=== PATIENT | male | born 1935 | race African-American/Black ===

== ENCOUNTER 2018-08-20 09:29 | Inpatient (IN) ==
[2018-08-20 10:32] LABS: Apearance,Urine CLEAR (Clear); Bilirubin,Urine Negative (Negative); Blood, Urine Negative (Negative); Calcium Oxalate Crystals,Urine Occasional /HPF (Few); Glucose,Urine (UA) Negative (Negative); Ketones,Urine Negative (Negative); Mucus,Urine Occasional /LPF (Occasional); Nitrite,Urine Negative (Negative); Protein,Urine Negative; RBC,Urine 1 /HPF (0-4); Squamous Epithelial Cell,Urine Occasional /HPF (0-10); Urine Color Yellow (Yellow); Urine Specific Gravity 1.015 (1.001-1.035); Urine Urobilinogen < 2.0 EU/DL (0.2-1.0); WBC,Urine 6 /HPF (0-6)
[2018-08-20 11:42] LABS: Basophils % 0.5 % (0.0-0.8); Eosinophils % 0.5 % (0.00-10.9); Hematocrit 39.3 VOL% (42.0-52.0); Hemoglobin 12.5 GM/DL (14.0-18.0); Immature Granulocytes % 0.3 %; Immature Granulocytes Absolute 0.01 #; Lymphocytes # 0.6 10*3/uL (1.4-4.0); Mean Corpuscular HGB Conc 31.8 GM/DL (32-36); Mean Corpuscular Hemoglobin 30 PG (27-34); Monocytes # 0.5 10*3/uL (0.11-0.8); Monocytes % 13.5 % (1.7-12.7); Neutrophils # 2.8 10*3/uL (1.4-7.4); Neutrophils % 71.2 % (38.7-73.9); Platelet Count 146 T/CUMM (130-400); Red Blood Count 4.18 MC/CUMM (3.8-5.5); Red Cell Distribution Width 15.9 % (9.3-17.3); White Blood Count 3.9 T/CUMM (4-12)
[2018-08-20 12:02] LABS: Albumin 3.2 G/DL (3.4-5.0); Bilirubin,Total 0.5 MG/DL (0.2-1.0); Calcium 8.8 MG/DL (8.5-10.1); Osmolality,Calculated 280.5 MOS/KG (273-304); Potassium 4.9 MMOL/L (3.5-5.1)
[2018-08-20] MEDS ORDERED: FUROSEMIDE 40 MG/4 ML VIAL IV STA (14:45)
[2018-08-20] MEDS ORDERED: FUROSEMIDE 40 MG/4 ML VIAL ONE (14:56)
[2018-08-20] MEDS ORDERED: ONDANSETRON 4 MG/2 ML VIAL IV PRN (16:11)
[2018-08-20] MEDS ORDERED: ALBUTEROL/IPRATROPIUM 3 ML NEB RESP TX PRN ×2 (16:52→16:55)
[2018-08-20] MEDS: TAMSULOSIN 0.4 MG CAPSULE PO SCH (19:24)
[2018-08-20] MEDS: CEFEPIME 1,000 MG in SYRINGE 1 EACH IV SCH (19:24)
[2018-08-20] MEDS: SERTRALINE 25 MG TABLET PO SCH (22:16)
[2018-08-20] MEDS: ISOSORBIDE DINITRATE 20 MG TABLET PO SCH (22:16)
[2018-08-20] MEDS: DOCUSATE SODIUM 100 MG CAPSULE PO SCH (22:17)
[2018-08-20] MEDS: hydrALAZINE 10 MG TABLET PO SCH (22:17)
[2018-08-21] MEDS: ACETAMINOPHEN 325 MG TABLET PO PRN ×2 (00:05→15:08)
[2018-08-21 04:08] LABS: Basophils % 0.4 % (0.0-0.8); Eosinophils % 0.7 % (0.00-10.9); Hematocrit 38.5 VOL% (42.0-52.0); Hemoglobin 11.9 GM/DL (14.0-18.0); Immature Granulocytes % 0.2 %; Immature Granulocytes Absolute 0.01 #; Lymphocytes # 0.8 10*3/uL (1.4-4.0); Lymphocytes % 17.1 % (21.2-54.2); Mean Corpuscular HGB Conc 30.9 GM/DL (32-36); Mean Corpuscular Hemoglobin 29 PG (27-34); Mean Corpuscular Volume 94.4 FL (87-102); Mean Platelet Volume 10.9 FL (9.6-12.0); Monocytes # 0.7 10*3/uL (0.11-0.8); Monocytes % 14.7 % (1.7-12.7); Neutrophils % 66.9 % (38.7-73.9); Platelet Count 151 T/CUMM (130-400); Red Blood Count 4.08 MC/CUMM (3.8-5.5); Red Cell Distribution Width 15.9 % (9.3-17.3); White Blood Count 4.6 T/CUMM (4-12)
[2018-08-21 04:42] LABS: Calcium 8.8 MG/DL (8.5-10.1); Osmolality,Calculated 283.5 MOS/KG (273-304); Potassium 4.2 MMOL/L (3.5-5.1)
[2018-08-21] MEDS: CEFEPIME 1,000 MG in SYRINGE 1 EACH IV SCH ×2 (05:52→17:35)
[2018-08-21] MEDS: METOPROLOL SUCCINATE XL 25 MG TABLET PO SCH (08:42)
[2018-08-21] MEDS: DOCUSATE SODIUM 100 MG CAPSULE PO SCH ×2 (08:42→21:39)
[2018-08-21] MEDS: MONTELUKAST 10 MG TABLET PO SCH (08:42)
[2018-08-21] MEDS: ISOSORBIDE DINITRATE 20 MG TABLET PO SCH ×2 (08:42→21:34)
[2018-08-21] MEDS: hydrALAZINE 10 MG TABLET PO SCH ×3 (08:43→21:34)
[2018-08-21] MEDS: SERTRALINE 25 MG TABLET PO SCH ×2 (08:43→21:33)
[2018-08-21] MEDS: ISOSORBIDE MONONITRATE 30 MG TABLET PO SCH (08:43)
[2018-08-21] MEDS: ASPIRIN EC 81 MG TABLET PO SCH (08:43)
[2018-08-21] MEDS ORDERED: FUROSEMIDE 40 MG/4 ML VIAL IV SCH (09:00)
[2018-08-21] MEDS: BACITRACIN OINT 0.9 GM PACK TOP SCH (15:05)
[2018-08-21] MEDS ORDERED: FUROSEMIDE 40 MG/4 ML VIAL IV ONE (17:21)
[2018-08-21] MEDS: TAMSULOSIN 0.4 MG CAPSULE PO SCH (17:35)
[2018-08-22] MEDS: CEFEPIME 1,000 MG in SYRINGE 1 EACH IV SCH ×2 (06:41→17:24)
[2018-08-22 08:24] LABS: Calcium 8.8 MG/DL (8.5-10.1); Osmolality,Calculated 285.4 MOS/KG (273-304)
[2018-08-22] MEDS: METOPROLOL SUCCINATE XL 25 MG TABLET PO SCH (08:34)
[2018-08-22] MEDS: hydrALAZINE 10 MG TABLET PO SCH ×3 (08:35→21:57)
[2018-08-22] MEDS: MONTELUKAST 10 MG TABLET PO SCH (08:35)
[2018-08-22] MEDS: ASPIRIN EC 81 MG TABLET PO SCH (08:35)
[2018-08-22] MEDS: SERTRALINE 25 MG TABLET PO SCH ×2 (08:35→21:57)
[2018-08-22] MEDS: DOCUSATE SODIUM 100 MG CAPSULE PO SCH ×2 (08:35→21:58)
[2018-08-22] MEDS: ISOSORBIDE DINITRATE 20 MG TABLET PO SCH ×2 (08:36→21:57)
[2018-08-22] MEDS: FUROSEMIDE 40 MG/4 ML VIAL IV SCH ×2 (08:38→16:08)
[2018-08-22] MEDS: ISOSORBIDE MONONITRATE 30 MG TABLET PO SCH (09:58)
[2018-08-22] MEDS: BACITRACIN OINT 0.9 GM PACK TOP SCH (11:27)
[2018-08-22] MEDS: POLYETHYLENE GLYCOL POWDER 17 GM PACK PO PRN (16:11)
[2018-08-22] MEDS: TAMSULOSIN 0.4 MG CAPSULE PO SCH (17:24)
[2018-08-23 03:51] LABS: Calcium 8.6 MG/DL (8.5-10.1); Osmolality,Calculated 283.5 MOS/KG (273-304); Potassium 3.8 MMOL/L (3.5-5.1)
[2018-08-23] MEDS: CEFEPIME 1,000 MG in SYRINGE 1 EACH IV SCH ×2 (06:02→18:02)
[2018-08-23] MEDS: METOPROLOL SUCCINATE XL 25 MG TABLET PO SCH (08:33)
[2018-08-23] MEDS: ISOSORBIDE DINITRATE 20 MG TABLET PO SCH ×2 (08:33→21:28)
[2018-08-23] MEDS: MONTELUKAST 10 MG TABLET PO SCH (08:33)
[2018-08-23] MEDS: hydrALAZINE 10 MG TABLET PO SCH ×3 (08:33→21:28)
[2018-08-23] MEDS: FUROSEMIDE 40 MG/4 ML VIAL IV SCH ×2 (08:35→16:05)
[2018-08-23] MEDS: ASPIRIN EC 81 MG TABLET PO SCH (08:35)
[2018-08-23] MEDS: DOCUSATE SODIUM 100 MG CAPSULE PO SCH ×2 (08:35→21:28)
[2018-08-23] MEDS: LISINOPRIL 2.5 MG TABLET PO SCH (08:35)
[2018-08-23] MEDS ORDERED: POTASSIUM CHLORIDE 10 MEQ TABLET PO ONE (08:36)
[2018-08-23] MEDS: BACITRACIN OINT 0.9 GM PACK TOP SCH (08:38)
[2018-08-23] MEDS: SERTRALINE 25 MG TABLET PO SCH ×2 (08:39→21:28)
[2018-08-23] MEDS: FINASTERIDE 5 MG TABLET PO SCH (12:41)
[2018-08-23] MEDS: TAMSULOSIN 0.4 MG CAPSULE PO SCH ×2 (12:41→21:28)
[2018-08-23] MEDS: ACETAMINOPHEN 325 MG TABLET PO PRN (16:05)
[2018-08-23] MEDS: POLYETHYLENE GLYCOL POWDER 17 GM PACK PO PRN (16:11)
[2018-08-24 06:12] LABS: Calcium 9.1 MG/DL (8.5-10.1); Osmolality,Calculated 283.5 MOS/KG (273-304); Potassium 3.9 MMOL/L (3.5-5.1)
[2018-08-24] MEDS: CEFEPIME 1,000 MG in SYRINGE 1 EACH IV SCH (06:22)
[2018-08-24] MEDS: METOPROLOL SUCCINATE XL 25 MG TABLET PO SCH (08:11)
[2018-08-24] MEDS: DOCUSATE SODIUM 100 MG CAPSULE PO SCH (08:11)
[2018-08-24] MEDS: MONTELUKAST 10 MG TABLET PO SCH (08:11)
[2018-08-24] MEDS: LISINOPRIL 2.5 MG TABLET PO SCH (08:11)
[2018-08-24] MEDS: ISOSORBIDE DINITRATE 20 MG TABLET PO SCH (08:11)
[2018-08-24] MEDS: ASPIRIN EC 81 MG TABLET PO SCH (08:11)
[2018-08-24] MEDS: hydrALAZINE 10 MG TABLET PO SCH (08:12)
[2018-08-24] MEDS: SERTRALINE 25 MG TABLET PO SCH (08:12)
[2018-08-24] MEDS: FINASTERIDE 5 MG TABLET PO SCH (08:12)
[2018-08-24] MEDS: TAMSULOSIN 0.4 MG CAPSULE PO SCH (08:12)
[2018-08-24] MEDS ORDERED: FUROSEMIDE 40 MG/4 ML VIAL IV SCH (09:00)
[2018-08-24 11:27] VITALS: BP 122/66
[2018-08-24] MEDS: BACITRACIN OINT 0.9 GM PACK TOP SCH (13:40)
== END 2018-08-24 13:18 | disposition home health service (06) | DRG 729 ==
LOC: N.ED 09:29 → N.EDINP 14:39 → N.TELES 15:45 → N.2W 16:10 → N.TELES 17:54
PROVIDERS: ADMIT Family Medicine; ATTEND Family Medicine

== ENCOUNTER 2018-12-09 03:26 | Inpatient (IN) ==
[2018-12-09] MEDS ORDERED: ONDANSETRON 4 MG/2 ML VIAL IV STA (04:58)
[2018-12-09] MEDS ORDERED: MORPHINE 4 MG/1 ML VIAL IV STA (04:58)
[2018-12-09 05:16] LABS: Basophils % 0.8 % (0.0-0.8); Eosinophils % 0.5 % (0.00-10.9); Hematocrit 40.7 VOL% (42.0-52.0); Immature Granulocytes % 0.5 %; Immature Granulocytes Absolute 0.02 #; Lymphocytes # 0.5 10*3/uL (1.4-4.0); Lymphocytes % 14.3 % (21.2-54.2); Mean Corpuscular HGB Conc 31.9 GM/DL (32-36); Mean Corpuscular Hemoglobin 30 PG (27-34); Mean Platelet Volume 11.2 FL (9.6-12.0); Monocytes # 0.4 10*3/uL (0.11-0.8); Monocytes % 9.7 % (1.7-12.7); Neutrophils # 2.7 10*3/uL (1.4-7.4); Neutrophils % 74.2 % (38.7-73.9); Platelet Count 118 T/CUMM (130-400); Red Blood Count 4.33 MC/CUMM (3.8-5.5); Red Cell Distribution Width 15.2 % (9.3-17.3); White Blood Count 3.7 T/CUMM (4-12)
[2018-12-09 06:11] LABS: Albumin 3.4 G/DL (3.4-5.0); Bilirubin,Total 1.4 MG/DL (0.2-1.0); Calcium 8.8 MG/DL (8.5-10.1); Osmolality,Calculated 289.1 MOS/KG (273-304); Potassium 3.8 MMOL/L (3.5-5.1); Total Protein 7.1 G/DL (6.4-8.3)
[2018-12-09] MEDS ORDERED: ASPIRIN EC 325 MG TABLET PO STA (06:15)
[2018-12-09 06:23] LABS: Apearance,Urine CLEAR (Clear); Bilirubin,Urine Negative (Negative); Blood, Urine Negative (Negative); Glucose,Urine (UA) Negative (Negative); Ketones,Urine Negative (Negative); Nitrite,Urine Negative (Negative); Protein,Urine Negative; RBC,Urine 3 /HPF (0-4); Squamous Epithelial Cell,Urine Occasional /HPF (0-10); Urine Color Yellow (Yellow); Urine Specific Gravity 1.019 (1.001-1.035); WBC,Urine 12 /HPF (0-6)
[2018-12-09] MEDS ORDERED: PIPERACILLIN/TAZOBACTAM 3,375 MG in SODIUM CHLORIDE 0.9% 100 ML IV STA (09:33)
[2018-12-09] MEDS ORDERED: LACTATED RINGERS 1,000 ML IV SCH ×2 (10:30→12:42)
[2018-12-09] MEDS ORDERED: ACETAMINOPHEN 325 MG TABLET PO PRN (12:42)
[2018-12-09] MEDS ORDERED: ONDANSETRON 4 MG/2 ML VIAL IV PRN (12:42)
[2018-12-09 13:35] LABS: Albumin 3.2 G/DL (3.4-5.0); Bilirubin,Total 0.8 MG/DL (0.2-1.0); Calcium 8.7 MG/DL (8.5-10.1); Osmolality,Calculated 284.3 MOS/KG (273-304); Potassium 3.5 MMOL/L (3.5-5.1); Total Protein 7.3 G/DL (6.4-8.3)
[2018-12-09] MEDS: PIPERACILLIN/TAZOBACTAM 3,375 MG in SODIUM CHLORIDE 0.9% 100 ML IV SCH ×2 (14:18→21:47)
[2018-12-09] MEDS ORDERED: DEXTROSE 50% 25 GM/50 ML SYRINGE IV PRN (14:31)
[2018-12-09] MEDS ORDERED: GLUCAGON 1 MG VIAL IM PRN (14:31)
[2018-12-09] MEDS ORDERED: oxyCODONE/ACETAMINOPHEN 5-325 MG TABLET PO PRN (15:10)
[2018-12-09] MEDS ORDERED: CETIRIZINE 10 MG TABLET PO PRN (15:10)
[2018-12-09] MEDS: FINASTERIDE 5 MG TABLET PO SCH (20:10)
[2018-12-09] MEDS: FUROSEMIDE 80 MG TABLET PO SCH (20:10)
[2018-12-09] MEDS: SERTRALINE 25 MG TABLET PO SCH (21:45)
[2018-12-09] MEDS: ISOSORBIDE DINITRATE 20 MG TABLET PO SCH (21:45)
[2018-12-09] MEDS: TAMSULOSIN 0.4 MG CAPSULE PO SCH (21:46)
[2018-12-09] MEDS: DOCUSATE SODIUM 100 MG CAPSULE PO SCH (21:46)
[2018-12-09] MEDS: hydrALAZINE 10 MG TABLET PO SCH (21:47)
[2018-12-10] MEDS: POTASSIUM CHLORIDE INJ 20 MEQ in LACTATED RINGERS 1,000 ML IV SCH ×2 (02:35→07:08)
[2018-12-10 05:21] LABS: Basophils % 0.6 % (0.0-0.8); Eosinophils # 0.1 10*3/uL (0.0-0.87); Eosinophils % 1.9 % (0.00-10.9); Hemoglobin 11.7 GM/DL (14.0-18.0); Lymphocytes # 0.6 10*3/uL (1.4-4.0); Lymphocytes % 19.8 % (21.2-54.2); Mean Corpuscular HGB Conc 30.8 GM/DL (32-36); Mean Corpuscular Hemoglobin 29 PG (27-34); Mean Corpuscular Volume 94.8 FL (87-102); Mean Platelet Volume 12.2 FL (9.6-12.0); Monocytes # 0.5 10*3/uL (0.11-0.8); Monocytes % 14.7 % (1.7-12.7); Platelet Count 112 T/CUMM (130-400); Red Blood Count 4.01 MC/CUMM (3.8-5.5); Red Cell Distribution Width 15.4 % (9.3-17.3); White Blood Count 3.1 T/CUMM (4-12)
[2018-12-10] MEDS: PIPERACILLIN/TAZOBACTAM 3,375 MG in SODIUM CHLORIDE 0.9% 100 ML IV SCH ×3 (05:24→21:15)
[2018-12-10 05:45] LABS: Albumin 2.9 G/DL (3.4-5.0); Bilirubin,Total 1.5 MG/DL (0.2-1.0); Calcium 8.4 MG/DL (8.5-10.1); Osmolality,Calculated 285.1 MOS/KG (273-304); Potassium 3.7 MMOL/L (3.5-5.1); Risk Ratio 2.84; Thyroid Stimulating Hormone 4.17 uIU/ml (0.358-3.74); Total Protein 6.5 G/DL (6.4-8.3)
[2018-12-10 07:03] LABS: Apearance,Urine CLEAR (Clear); Bilirubin,Urine Negative (Negative); Blood, Urine Small mg/dL (Negative); Glucose,Urine (UA) Negative (Negative); Ketones,Urine Negative (Negative); Mucus,Urine Occasional /LPF (Occasional); Nitrite,Urine Negative (Negative); Protein,Urine Negative; RBC,Urine 9 /HPF (0-4); Squamous Epithelial Cell,Urine Occasional /HPF (0-10); Urine Color Yellow (Yellow); Urine Specific Gravity 1.014 (1.001-1.035); Urine Urobilinogen < 2.0 EU/DL (0.2-1.0); WBC,Urine 45 /HPF (0-6)
[2018-12-10] MEDS ORDERED: METOPROLOL SUCCINATE XL 25 MG TABLET PO SCH (09:00)
[2018-12-10] MEDS: MONTELUKAST 10 MG TABLET PO SCH (10:13)
[2018-12-10] MEDS: PYRIDOXINE 50 MG TABLET PO SCH (10:13)
[2018-12-10] MEDS: SERTRALINE 25 MG TABLET PO SCH ×2 (10:13→21:11)
[2018-12-10] MEDS: ISOSORBIDE DINITRATE 20 MG TABLET PO SCH (10:14)
[2018-12-10] MEDS: FINASTERIDE 5 MG TABLET PO SCH (10:14)
[2018-12-10] MEDS: LISINOPRIL 2.5 MG TABLET PO SCH (10:14)
[2018-12-10] MEDS: ASPIRIN EC 81 MG TABLET PO SCH (10:14)
[2018-12-10] MEDS: TAMSULOSIN 0.4 MG CAPSULE PO SCH ×2 (10:15→21:11)
[2018-12-10] MEDS: hydrALAZINE 10 MG TABLET PO SCH ×3 (10:15→21:27)
[2018-12-10] MEDS: FUROSEMIDE 80 MG TABLET PO SCH (10:15)
[2018-12-10] MEDS: PANTOPRAZOLE 40 MG TABLET PO SCH (10:15)
[2018-12-10] MEDS: DOCUSATE SODIUM 100 MG CAPSULE PO SCH ×2 (10:15→21:10)
[2018-12-10] MEDS: INSULIN LISPRO 100 UNIT/ML SUBCUT SCH ×2 (16:19→21:28)
[2018-12-11] MEDS: PIPERACILLIN/TAZOBACTAM 3,375 MG in SODIUM CHLORIDE 0.9% 100 ML IV SCH (05:02)
[2018-12-11 05:39] LABS: Basophils % 0.7 % (0.0-0.8); Eosinophils # 0.1 10*3/uL (0.0-0.87); Hematocrit 37.4 VOL% (42.0-52.0); Hemoglobin 11.8 GM/DL (14.0-18.0); Lymphocytes # 0.7 10*3/uL (1.4-4.0); Lymphocytes % 21.6 % (21.2-54.2); Mean Corpuscular HGB Conc 31.6 GM/DL (32-36); Mean Corpuscular Hemoglobin 30 PG (27-34); Mean Corpuscular Volume 94.2 FL (87-102); Monocytes # 0.4 10*3/uL (0.11-0.8); Monocytes % 14.4 % (1.7-12.7); Neutrophils # 1.9 10*3/uL (1.4-7.4); Neutrophils % 61.3 % (38.7-73.9); Platelet Count 103 T/CUMM (130-400); Red Blood Count 3.97 MC/CUMM (3.8-5.5); Red Cell Distribution Width 15.4 % (9.3-17.3); White Blood Count 3.1 T/CUMM (4-12)
[2018-12-11 06:01] LABS: Calcium 8.6 MG/DL (8.5-10.1); Osmolality,Calculated 282.4 MOS/KG (273-304); Potassium 3.6 MMOL/L (3.5-5.1)
[2018-12-11] MEDS: INSULIN LISPRO 100 UNIT/ML SUBCUT SCH ×2 (07:54→11:36)
[2018-12-11] MEDS: FINASTERIDE 5 MG TABLET PO SCH (08:19)
[2018-12-11] MEDS: ASPIRIN EC 81 MG TABLET PO SCH (08:19)
[2018-12-11] MEDS: LISINOPRIL 2.5 MG TABLET PO SCH (08:20)
[2018-12-11] MEDS: PYRIDOXINE 50 MG TABLET PO SCH (08:20)
[2018-12-11] MEDS: FUROSEMIDE 80 MG TABLET PO SCH (08:20)
[2018-12-11] MEDS: MONTELUKAST 10 MG TABLET PO SCH (08:20)
[2018-12-11] MEDS: PANTOPRAZOLE 40 MG TABLET PO SCH (08:21)
[2018-12-11] MEDS: SERTRALINE 25 MG TABLET PO SCH (08:21)
[2018-12-11] MEDS: TAMSULOSIN 0.4 MG CAPSULE PO SCH (08:21)
[2018-12-11] MEDS: DOCUSATE SODIUM 100 MG CAPSULE PO SCH (08:21)
[2018-12-11] MEDS: hydrALAZINE 10 MG TABLET PO SCH (08:21)
[2018-12-11] MEDS ORDERED: METOPROLOL SUCCINATE XL 25 MG TABLET PO SCH (09:00)
[2018-12-11 11:11] VITALS: BP 119/59
== END 2018-12-11 15:00 | disposition home or self-care (01) | DRG 445 ==
LOC: N.ED 03:26 → N.EDINP 11:07 → N.3E 11:53
PROVIDERS: ADMIT Family Medicine; ATTEND Family Medicine

== ENCOUNTER 2020-04-22 09:47 | Inpatient (IN) ==
[2020-04-22] MEDS ORDERED: FUROSEMIDE 100 MG/10 ML VIAL IV STA (10:23)
[2020-04-22 10:38] LABS: Basophils % 0.2 % (0.0-0.8); Hematocrit 39.9 VOL% (42.0-52.0); Hemoglobin 12.2 GM/DL (14.0-18.0); Immature Granulocytes % 0.3 %; Immature Granulocytes Absolute 0.02 #; Lymphocytes # 0.3 10*3/uL (1.4-4.0); Lymphocytes % 5.2 % (21.2-54.2); Mean Corpuscular HGB Conc 30.6 GM/DL (32-36); Mean Platelet Volume 11.2 FL (9.6-12.0); Monocytes % 14.7 % (1.7-12.7); Neutrophils % 79.6 % (38.7-73.9); Platelet Count 110 T/CUMM (130-400); Red Blood Count 3.95 MC/CUMM (3.8-5.5); Red Cell Distribution Width 15.4 % (9.3-17.3); White Blood Count 5.9 T/CUMM (4-12)
[2020-04-22 10:51] LABS: INR 1.2; PT Patient Result 13.1 SECS (9.8-11.9); Partial Thromboplastin Time 35.3 SECS (23.9-33.8)
[2020-04-22 11:22] LABS: Albumin 3.4 G/DL (3.4-5.0); Bilirubin,Total 1.1 MG/DL (0.2-1.0); Calcium 8.9 MG/DL (8.5-10.1); Osmolality,Calculated 282.4 MOS/KG (273-304); Total Protein 7.4 G/DL (6.4-8.3)
[2020-04-22] MEDS ORDERED: SODIUM BICARBONATE 50 MEQ/50 ML VIAL IV STA (12:59)
[2020-04-22] MEDS ORDERED: DEXTROSE 50% 25 GM/50 ML VIAL IV STA (12:59)
[2020-04-22] MEDS ORDERED: CALCIUM CHLORIDE 1,000 MG/10 ML SYRINGE IV STA (12:59)
[2020-04-22] MEDS ORDERED: INSULIN REGULAR 100 UNIT/ML IV STA (12:59)
[2020-04-22] MEDS ORDERED: DEXTROSE 50% 25 GM/50 ML SYRINGE IV ONE (13:34)
[2020-04-22] MEDS ORDERED: ONDANSETRON 4 MG/2 ML VIAL IV PRN (15:51)
[2020-04-22] MEDS ORDERED: ACETAMINOPHEN 325 MG TABLET PO PRN (15:51)
[2020-04-22] MEDS ORDERED: GLUCAGON 1 MG VIAL IM PRN (15:51)
[2020-04-22] MEDS ORDERED: DEXTROSE 50% 25 GM/50 ML VIAL IV PRN (15:51)
[2020-04-22 16:57] LABS: Osmolality,Calculated 282.1 MOS/KG (273-304)
[2020-04-22] MEDS ORDERED: BISACODYL 5 MG TABLET PO PRN (17:25)
[2020-04-22] MEDS ORDERED: hydrALAZINE 20 MG/1 ML VIAL IV PRN (17:26)
[2020-04-22] MEDS: cefTRIAXone 1,000 MG in SYRINGE 1 EACH IV SCH (18:17)
[2020-04-22] MEDS: methylPREDNISolone SOD SUC 40 MG/1 ML VIAL IV SCH (18:40)
[2020-04-22] MEDS: APIXABAN 2.5 MG TABLET PO SCH (21:25)
[2020-04-22] MEDS: TAMSULOSIN 0.4 MG CAPSULE PO SCH (21:25)
[2020-04-22] MEDS: SERTRALINE 25 MG TABLET PO SCH (21:25)
[2020-04-22] MEDS: INSULIN REGULAR 100 UNIT/ML SUBCUT SCH (21:26)
[2020-04-22] MEDS: hydrALAZINE 10 MG TABLET PO SCH (21:26)
[2020-04-22] MEDS: DOCUSATE SODIUM 100 MG CAPSULE PO SCH (21:31)
[2020-04-23 05:12] LABS: Hematocrit 35.5 VOL% (42.0-52.0); Hemoglobin 11.5 GM/DL (14.0-18.0); Immature Granulocytes % 0.6 %; Immature Granulocytes Absolute 0.04 #; Lymphocytes # 0.3 10*3/uL (1.4-4.0); Lymphocytes % 4.3 % (21.2-54.2); Mean Corpuscular HGB Conc 32.4 GM/DL (32-36); Mean Corpuscular Volume 98.1 FL (87-102); Mean Platelet Volume 11.2 FL (9.6-12.0); Monocytes % 8.9 % (1.7-12.7); Neutrophils % 86.2 % (38.7-73.9); Platelet Count 112 T/CUMM (130-400); Red Blood Count 3.62 MC/CUMM (3.8-5.5); Red Cell Distribution Width 15.3 % (9.3-17.3); White Blood Count 6.3 T/CUMM (4-12)
[2020-04-23 05:36] LABS: Hypochromasia Slight; Lymphocytes 5 % (20-55); Segmented Neutrophils 87 % (50-85); Total Cells Counted 100
[2020-04-23 05:37] LABS: Macrocytosis Slight; Ovalocytes Slight; Platelet Estimate Decreased
[2020-04-23 05:43] LABS: Albumin 2.7 G/DL (3.4-5.0); Bilirubin,Total 1.6 MG/DL (0.2-1.0); Calcium 9.4 MG/DL (8.5-10.1); Osmolality,Calculated 290.1 MOS/KG (273-304); Total Protein 7.3 G/DL (6.4-8.3)
[2020-04-23] MEDS: methylPREDNISolone SOD SUC 40 MG/1 ML VIAL IV SCH ×2 (05:58→17:32)
[2020-04-23] MEDS: SERTRALINE 25 MG TABLET PO SCH ×2 (08:39→21:31)
[2020-04-23] MEDS: LINACLOTIDE 145 MCG CAPSULE PO SCH (08:39)
[2020-04-23] MEDS: ASPIRIN EC 81 MG TABLET PO SCH (08:40)
[2020-04-23] MEDS: METOPROLOL SUCCINATE XL 25 MG TABLET PO SCH (08:40)
[2020-04-23] MEDS: PANTOPRAZOLE 40 MG TABLET PO SCH (08:40)
[2020-04-23] MEDS: DOCUSATE SODIUM 100 MG CAPSULE PO SCH ×2 (08:40→21:31)
[2020-04-23] MEDS: TAMSULOSIN 0.4 MG CAPSULE PO SCH ×2 (08:40→21:31)
[2020-04-23] MEDS: FINASTERIDE 5 MG TABLET PO SCH (08:40)
[2020-04-23] MEDS: APIXABAN 2.5 MG TABLET PO SCH ×2 (08:40→21:31)
[2020-04-23] MEDS: INSULIN REGULAR 100 UNIT/ML SUBCUT SCH ×4 (08:41→21:30)
[2020-04-23] MEDS: FUROSEMIDE 40 MG/4 ML VIAL IV SCH ×2 (08:41→21:32)
[2020-04-23] MEDS ORDERED: lisinopriL 2.5 MG TABLET PO SCH (09:00)
[2020-04-23] MEDS: hydrALAZINE 10 MG TABLET PO SCH ×3 (10:07→21:32)
[2020-04-23] MEDS ORDERED: SODIUM POLYSTYRENE SULFATE 15 GM/60 ML BOTTLE PO ONE (14:24)
[2020-04-23 15:10] LABS: Troponin I 0.139 NG/ML (0.00-0.045)
[2020-04-23] MEDS: cefTRIAXone 1,000 MG in SYRINGE 1 EACH IV SCH (17:32)
[2020-04-23 18:11] LABS: Troponin I 0.136 NG/ML (0.00-0.045)
[2020-04-23 21:01] LABS: Troponin I 0.124 NG/ML (0.00-0.045)
[2020-04-24] MEDS: methylPREDNISolone SOD SUC 40 MG/1 ML VIAL IV SCH (05:03)
[2020-04-24 06:57] LABS: Basophils % 0.1 % (0.0-0.8); Hematocrit 36.1 VOL% (42.0-52.0); Hemoglobin 11.6 GM/DL (14.0-18.0); Immature Granulocytes % 0.4 %; Immature Granulocytes Absolute 0.04 #; Lymphocytes # 0.2 10*3/uL (1.4-4.0); Lymphocytes % 2.7 % (21.2-54.2); Mean Corpuscular HGB Conc 32.1 GM/DL (32-36); Mean Corpuscular Volume 97.8 FL (87-102); Mean Platelet Volume 10.8 FL (9.6-12.0); Monocytes % 8.1 % (1.7-12.7); Neutrophils % 88.7 % (38.7-73.9); Platelet Count 138 T/CUMM (130-400); Red Blood Count 3.69 MC/CUMM (3.8-5.5)
[2020-04-24 07:35] LABS: Albumin 2.5 G/DL (3.4-5.0); Bilirubin,Total 0.7 MG/DL (0.2-1.0); Calcium 8.7 MG/DL (8.5-10.1); Total Protein 6.9 G/DL (6.4-8.3)
[2020-04-24 07:39] LABS: Anisocytosis 1+; Lymphocytes 3 % (20-55); Ovalocytes 1+; Platelet Estimate Decreased; Segmented Neutrophils 92 % (50-85); Total Cells Counted 100
[2020-04-24 07:40] LABS: Hypochromasia Slight
[2020-04-24 07:41] LABS: Risk Ratio 3.28; VLDL CHOLESTEROL 16.2 MG/DL
[2020-04-24] MEDS: INSULIN REGULAR 100 UNIT/ML SUBCUT SCH ×2 (09:52→13:27)
[2020-04-24] MEDS: PANTOPRAZOLE 40 MG TABLET PO SCH (09:53)
[2020-04-24] MEDS: ASPIRIN EC 81 MG TABLET PO SCH (09:53)
[2020-04-24] MEDS: SERTRALINE 25 MG TABLET PO SCH (09:53)
[2020-04-24] MEDS: TAMSULOSIN 0.4 MG CAPSULE PO SCH (09:53)
[2020-04-24] MEDS: METOPROLOL SUCCINATE XL 25 MG TABLET PO SCH (09:53)
[2020-04-24] MEDS: FUROSEMIDE 40 MG/4 ML VIAL IV SCH (09:54)
[2020-04-24] MEDS: APIXABAN 2.5 MG TABLET PO SCH (09:54)
[2020-04-24] MEDS: hydrALAZINE 10 MG TABLET PO SCH ×2 (09:54→16:03)
[2020-04-24] MEDS: LINACLOTIDE 145 MCG CAPSULE PO SCH (09:54)
[2020-04-24] MEDS: FINASTERIDE 5 MG TABLET PO SCH (09:54)
[2020-04-24] MEDS: DOCUSATE SODIUM 100 MG CAPSULE PO SCH (09:54)
[2020-04-24 11:49] VITALS: BP 108/69
== END 2020-04-24 16:09 | disposition home health service (06) | DRG 291 ==
LOC: N.ED 09:47 → N.EDINP 13:01 → N.TELEN 15:25
PROVIDERS: ADMIT Family Medicine; ATTEND Family Medicine

== ENCOUNTER 2020-11-19 08:49 | Inpatient (IN) ==
[2020-11-19 09:31] LABS: Basophils % 0.3 % (0.0-0.8); Hematocrit 43.4 VOL% (42.0-52.0); Hemoglobin 13.2 GM/DL (14.0-18.0); Immature Granulocytes % 0.6 %; Immature Granulocytes Absolute 0.02 #; Lymphocytes # 0.5 10*3/uL (1.4-4.0); Lymphocytes % 14.5 % (21.2-54.2); Mean Corpuscular HGB Conc 30.4 GM/DL (32-36); Mean Corpuscular Volume 84.6 FL (87-102); Mean Platelet Volume 10.4 FL (9.6-12.0); Monocytes % 13.2 % (1.7-12.7); Neutrophils % 71.4 % (38.7-73.9); Platelet Count 161 T/CUMM (130-400); Red Blood Count 5.13 MC/CUMM (3.8-5.5); Red Cell Distribution Width 19.9 % (9.3-17.3); White Blood Count 3.2 T/CUMM (4-12)
[2020-11-19] MEDS ORDERED: ONDANSETRON 4 MG/2 ML VIAL IV STA (09:38)
[2020-11-19] MEDS ORDERED: MORPHINE 4 MG/1 ML VIAL IV STA (09:38)
[2020-11-19] MEDS ORDERED: ONDANSETRON 4 MG/2 ML VIAL ONE (09:39)
[2020-11-19] MEDS ORDERED: MORPHINE 4 MG/1 ML VIAL ONE (09:39)
[2020-11-19 10:04] LABS: Albumin 2.7 G/DL (3.4-5.0); Bilirubin,Total 1.2 MG/DL (0.2-1.0); Osmolality,Calculated 285.5 MOS/KG (273-304); Potassium 3.8 MMOL/L (3.5-5.1); Total Protein 7.4 G/DL (6.4-8.3)
[2020-11-19] MEDS ORDERED: FUROSEMIDE 40 MG/4 ML VIAL IV STA (10:16)
[2020-11-19] MEDS ORDERED: ONDANSETRON 4 MG/2 ML VIAL IV PRN (10:18)
[2020-11-19] MEDS ORDERED: CETIRIZINE 10 MG TABLET PO PRN (13:37)
[2020-11-19] MEDS ORDERED: DEXTROSE 50% 25 GM/50 ML VIAL IV PRN (13:44)
[2020-11-19] MEDS ORDERED: GLUCAGON 1 MG VIAL IM PRN (13:44)
[2020-11-19 15:50] LABS: Troponin I 0.151 NG/ML (0.00-0.045)
[2020-11-19] MEDS ORDERED: FUROSEMIDE 100 MG/10 ML VIAL IV SCH (16:00)
[2020-11-19] MEDS ORDERED: FUROSEMIDE 40 MG/4 ML VIAL IV SCH (16:00)
[2020-11-19] MEDS: INSULIN REGULAR 100 UNIT/ML SUBCUT SCH ×2 (16:53→21:23)
[2020-11-19] MEDS: PANTOPRAZOLE 40 MG TABLET PO SCH (17:22)
[2020-11-19 19:14] LABS: Troponin I 0.147 NG/ML (0.00-0.045)
[2020-11-19] MEDS: DOCUSATE SODIUM 100 MG CAPSULE PO SCH (20:50)
[2020-11-19] MEDS: APIXABAN 2.5 MG TABLET PO SCH (20:50)
[2020-11-19] MEDS: cefTRIAXone 1,000 MG in SYRINGE 1 EACH IV SCH (20:50)
[2020-11-19] MEDS: SERTRALINE 25 MG TABLET PO SCH (20:58)
[2020-11-19] MEDS: ACETAMINOPHEN 325 MG TABLET PO PRN (20:58)
[2020-11-19] MEDS ORDERED: TAMSULOSIN 0.4 MG CAPSULE PO SCH (21:00)
[2020-11-20 05:21] LABS: Basophils % 0.1 % (0.0-0.8); Hematocrit 39.3 VOL% (42.0-52.0); Hemoglobin 12.2 GM/DL (14.0-18.0); Immature Granulocytes % 0.4 %; Immature Granulocytes Absolute 0.06 #; Lymphocytes # 0.3 10*3/uL (1.4-4.0); Lymphocytes % 2.2 % (21.2-54.2); Mean Corpuscular Volume 83.4 FL (87-102); Mean Platelet Volume 10.7 FL (9.6-12.0); Monocytes % 6.5 % (1.7-12.7); NRBC # 0.02 10*3/uL; Neutrophils % 90.8 % (38.7-73.9); Platelet Count 164 T/CUMM (130-400); Red Blood Count 4.71 MC/CUMM (3.8-5.5); Red Cell Distribution Width 19.9 % (9.3-17.3)
[2020-11-20 05:40] LABS: Calcium 8.7 MG/DL (8.5-10.1); Osmolality,Calculated 288.7 MOS/KG (273-304); Potassium 4.1 MMOL/L (3.5-5.1)
[2020-11-20 05:43] LABS: Albumin 2.3 G/DL (3.4-5.0); Bilirubin,Total 1.6 MG/DL (0.2-1.0); Osmolality,Calculated 287.8 MOS/KG (273-304); Total Protein 6.6 G/DL (6.4-8.3)
[2020-11-20 05:45] LABS: Band Neutrophils 1 % (0-10); Lymphocytes 2 % (20-55); Platelet Estimate Normal; Segmented Neutrophils 93 % (50-85); Total Cells Counted 100
[2020-11-20] MEDS: INSULIN REGULAR 100 UNIT/ML SUBCUT SCH ×4 (08:46→21:05)
[2020-11-20] MEDS: ASPIRIN EC 81 MG TABLET PO SCH (08:50)
[2020-11-20] MEDS: DOCUSATE SODIUM 100 MG CAPSULE PO SCH ×2 (08:50→21:05)
[2020-11-20] MEDS: APIXABAN 2.5 MG TABLET PO SCH ×2 (08:50→21:05)
[2020-11-20] MEDS: METOPROLOL SUCCINATE XL 25 MG TABLET PO SCH (08:50)
[2020-11-20] MEDS: SERTRALINE 25 MG TABLET PO SCH ×2 (08:50→21:05)
[2020-11-20] MEDS: MONTELUKAST 10 MG TABLET PO SCH (08:50)
[2020-11-20] MEDS: sitaGLIPtin 25 MG TABLET PO SCH (08:50)
[2020-11-20] MEDS ORDERED: FINASTERIDE 5 MG TABLET PO SCH (09:00)
[2020-11-20] MEDS ORDERED: PANTOPRAZOLE 40 MG TABLET PO SCH (09:00)
[2020-11-20] MEDS ORDERED: PYRIDOXINE 100 MG TABLET PO SCH (09:00)
[2020-11-20] MEDS ORDERED: LINACLOTIDE 145 MCG CAPSULE PO SCH (09:00)
[2020-11-20 12:30] LABS: Bacteria,Urine Occasional /HPF (Few); Bilirubin,Urine Negative (Negative); Blood, Urine Small mg/dL (Negative); Glucose,Urine (UA) Negative (Negative); Hyaline Casts,Urine 116 /LPF (0-3); Ketones,Urine Negative (Negative); Mucus,Urine Occasional /LPF (Occasional); Nitrite,Urine Negative (Negative); Protein,Urine Negative; RBC,Urine 5 /HPF (0-4); Squamous Epithelial Cell,Urine Occasional /HPF (0-10); Urine Appearance CLEAR (Clear); Urine Color Amber (Yellow); Urine Specific Gravity 1.014 (1.001-1.035); WBC,Urine 31 /HPF (0-6)
[2020-11-20] MEDS: PANTOPRAZOLE 40 MG TABLET PO SCH (17:53)
[2020-11-20] MEDS: cefTRIAXone 1,000 MG in SYRINGE 1 EACH IV SCH (21:04)
[2020-11-20] MEDS ORDERED: MICAFUNGIN 50 MG, MICAFUNGIN 100 MG in SODIUM CHLORIDE 0.9% 100 ML IV SCH (22:00)
[2020-11-21] MEDS: ACETAMINOPHEN 325 MG TABLET PO PRN (04:45)
[2020-11-21 06:50] LABS: Calcium 8.8 MG/DL (8.5-10.1); Osmolality,Calculated 283.9 MOS/KG (273-304); Potassium 3.9 MMOL/L (3.5-5.1)
[2020-11-21] MEDS: INSULIN REGULAR 100 UNIT/ML SUBCUT SCH ×4 (09:45→21:09)
[2020-11-21] MEDS: DOCUSATE SODIUM 100 MG CAPSULE PO SCH ×2 (10:38→21:09)
[2020-11-21] MEDS: ASPIRIN EC 81 MG TABLET PO SCH (10:38)
[2020-11-21] MEDS: MONTELUKAST 10 MG TABLET PO SCH (10:38)
[2020-11-21] MEDS: sitaGLIPtin 25 MG TABLET PO SCH (10:38)
[2020-11-21] MEDS: APIXABAN 2.5 MG TABLET PO SCH ×2 (10:39→21:09)
[2020-11-21] MEDS: METOPROLOL SUCCINATE XL 25 MG TABLET PO SCH (10:39)
[2020-11-21] MEDS: SERTRALINE 25 MG TABLET PO SCH ×2 (10:39→21:09)
[2020-11-21] MEDS: MULTIVITAMIN (CENTRUM) TABLET PO SCH (10:39)
[2020-11-21] MEDS: MICAFUNGIN 100 MG in SODIUM CHLORIDE 0.9% 100 ML IV SCH (16:49)
[2020-11-21] MEDS: PANTOPRAZOLE 40 MG TABLET PO SCH (17:28)
[2020-11-21] MEDS: cefTRIAXone 1,000 MG in SYRINGE 1 EACH IV SCH (21:09)
[2020-11-22 05:34] LABS: Basophils % 0.3 % (0.0-0.8); Eosinophils % 0.4 % (0.00-10.9); Hematocrit 43.5 VOL% (42.0-52.0); Hemoglobin 14.2 GM/DL (14.0-18.0); Immature Granulocytes % 0.6 %; Immature Granulocytes Absolute 0.04 #; Lymphocytes # 0.6 10*3/uL (1.4-4.0); Lymphocytes % 8.8 % (21.2-54.2); Mean Corpuscular HGB Conc 32.6 GM/DL (32-36); Mean Corpuscular Volume 80.6 FL (87-102); Mean Platelet Volume 10.8 FL (9.6-12.0); Monocytes % 10.6 % (1.7-12.7); NRBC # 0.03 10*3/uL; Neutrophils % 79.3 % (38.7-73.9); Platelet Count 188 T/CUMM (130-400); Red Cell Distribution Width 20.1 % (9.3-17.3)
[2020-11-22 05:59] LABS: Calcium 8.7 MG/DL (8.5-10.1); Osmolality,Calculated 276.6 MOS/KG (273-304); Potassium 4.2 MMOL/L (3.5-5.1)
[2020-11-22] MEDS: INSULIN REGULAR 100 UNIT/ML SUBCUT SCH ×4 (08:42→20:28)
[2020-11-22] MEDS: sitaGLIPtin 25 MG TABLET PO SCH (08:44)
[2020-11-22] MEDS: MONTELUKAST 10 MG TABLET PO SCH (08:44)
[2020-11-22] MEDS: METOPROLOL SUCCINATE XL 25 MG TABLET PO SCH (08:44)
[2020-11-22] MEDS: ASPIRIN EC 81 MG TABLET PO SCH (08:44)
[2020-11-22] MEDS: APIXABAN 2.5 MG TABLET PO SCH ×2 (08:44→20:27)
[2020-11-22] MEDS: DOCUSATE SODIUM 100 MG CAPSULE PO SCH ×2 (08:44→20:27)
[2020-11-22] MEDS: SERTRALINE 25 MG TABLET PO SCH ×2 (08:45→20:29)
[2020-11-22] MEDS: MULTIVITAMIN (CENTRUM) TABLET PO SCH (08:45)
[2020-11-22] MEDS: DOBUTamine 500 MG/250 ML PREMIX IV SCH (14:38)
[2020-11-22] MEDS: PANTOPRAZOLE 40 MG TABLET PO SCH (17:03)
[2020-11-22] MEDS: MICAFUNGIN 100 MG in SODIUM CHLORIDE 0.9% 100 ML IV SCH (20:27)
[2020-11-22] MEDS: cefTRIAXone 1,000 MG in SYRINGE 1 EACH IV SCH (20:28)
[2020-11-23 05:48] LABS: Basophils % 0.4 % (0.0-0.8); Eosinophils % 0.7 % (0.00-10.9); Hematocrit 40.9 VOL% (42.0-52.0); Hemoglobin 13.2 GM/DL (14.0-18.0); Immature Granulocytes % 1.1 %; Immature Granulocytes Absolute 0.06 #; Lymphocytes # 0.5 10*3/uL (1.4-4.0); Lymphocytes % 8.4 % (21.2-54.2); Mean Corpuscular HGB Conc 32.3 GM/DL (32-36); Mean Platelet Volume 10.9 FL (9.6-12.0); Monocytes % 12.2 % (1.7-12.7); NRBC # 0.02 10*3/uL; Neutrophils % 77.2 % (38.7-73.9); Platelet Count 169 T/CUMM (130-400); Red Blood Count 5.11 MC/CUMM (3.8-5.5); Red Cell Distribution Width 19.8 % (9.3-17.3); White Blood Count 5.6 T/CUMM (4-12)
[2020-11-23 06:16] LABS: Calcium 8.6 MG/DL (8.5-10.1); Osmolality,Calculated 280.2 MOS/KG (273-304); Potassium 3.8 MMOL/L (3.5-5.1)
[2020-11-23] MEDS: INSULIN REGULAR 100 UNIT/ML SUBCUT SCH ×4 (07:57→21:20)
[2020-11-23] MEDS: METOPROLOL SUCCINATE XL 25 MG TABLET PO SCH (09:25)
[2020-11-23] MEDS: APIXABAN 2.5 MG TABLET PO SCH ×2 (09:25→21:19)
[2020-11-23] MEDS: MONTELUKAST 10 MG TABLET PO SCH (09:25)
[2020-11-23] MEDS: metOLazone 5 MG TABLET PO SCH (09:25)
[2020-11-23] MEDS: SERTRALINE 25 MG TABLET PO SCH ×2 (09:25→21:19)
[2020-11-23] MEDS: DOCUSATE SODIUM 100 MG CAPSULE PO SCH ×2 (09:25→21:19)
[2020-11-23] MEDS: sitaGLIPtin 25 MG TABLET PO SCH (09:25)
[2020-11-23] MEDS: ASPIRIN EC 81 MG TABLET PO SCH (09:25)
[2020-11-23] MEDS: MULTIVITAMIN (CENTRUM) TABLET PO SCH (09:25)
[2020-11-23] MEDS ORDERED: TUBERCULIN SKIN TEST 0.1 ML SYRINGE INTRADERM ONE (15:24)
[2020-11-23] MEDS: PANTOPRAZOLE 40 MG TABLET PO SCH (18:17)
[2020-11-23] MEDS: DOBUTamine 500 MG/250 ML PREMIX IV SCH (18:47)
[2020-11-23] MEDS: cefTRIAXone 1,000 MG in SYRINGE 1 EACH IV SCH (21:19)
[2020-11-24 05:45] LABS: Basophils % 0.2 % (0.0-0.8); Eosinophils % 0.3 % (0.00-10.9); Hematocrit 37.6 VOL% (42.0-52.0); Hemoglobin 12.2 GM/DL (14.0-18.0); Immature Granulocytes % 0.5 %; Immature Granulocytes Absolute 0.03 #; Lymphocytes # 0.2 10*3/uL (1.4-4.0); Mean Corpuscular HGB Conc 32.4 GM/DL (32-36); Mean Corpuscular Volume 79.5 FL (87-102); Mean Platelet Volume 10.1 FL (9.6-12.0); Monocytes % 10.4 % (1.7-12.7); NRBC # 0.02 10*3/uL; Neutrophils % 84.6 % (38.7-73.9); Platelet Count 153 T/CUMM (130-400); Red Blood Count 4.73 MC/CUMM (3.8-5.5); Red Cell Distribution Width 19.9 % (9.3-17.3)
[2020-11-24 06:22] LABS: Albumin 2.1 G/DL (3.4-5.0); Bilirubin,Total 1.2 MG/DL (0.2-1.0); Calcium 8.9 MG/DL (8.5-10.1); Osmolality,Calculated 279.9 MOS/KG (273-304); Potassium 3.4 MMOL/L (3.5-5.1); Total Protein 6.4 G/DL (6.4-8.3)
[2020-11-24 06:23] LABS: Lymphocytes 2 % (20-55); Segmented Neutrophils 87 % (50-85); Total Cells Counted 100
[2020-11-24 06:27] LABS: Hypochromasia Slight; Platelet Estimate Adequate
[2020-11-24] MEDS: METOPROLOL SUCCINATE XL 25 MG TABLET PO SCH (08:27)
[2020-11-24] MEDS: ASPIRIN EC 81 MG TABLET PO SCH (08:27)
[2020-11-24] MEDS: DOCUSATE SODIUM 100 MG CAPSULE PO SCH ×2 (08:27→20:53)
[2020-11-24] MEDS: MONTELUKAST 10 MG TABLET PO SCH (08:27)
[2020-11-24] MEDS: sitaGLIPtin 25 MG TABLET PO SCH (08:27)
[2020-11-24] MEDS: MULTIVITAMIN (CENTRUM) TABLET PO SCH (08:27)
[2020-11-24] MEDS: metOLazone 5 MG TABLET PO SCH (08:28)
[2020-11-24] MEDS: SERTRALINE 25 MG TABLET PO SCH ×2 (08:28→20:53)
[2020-11-24] MEDS: APIXABAN 2.5 MG TABLET PO SCH ×2 (08:28→20:53)
[2020-11-24] MEDS: INSULIN REGULAR 100 UNIT/ML SUBCUT SCH ×4 (08:42→20:54)
[2020-11-24 13:06] LABS: Bilirubin,Urine Negative (Negative); Blood, Urine Small mg/dL (Negative); Glucose,Urine (UA) Negative (Negative); Hyaline Casts,Urine 2 /LPF (0-3); Ketones,Urine Negative (Negative); Nitrite,Urine Negative (Negative); Protein,Urine Negative; RBC,Urine 1 /HPF (0-4); Squamous Epithelial Cell,Urine Few /HPF (0-10); Urine Appearance CLEAR (Clear); Urine Color Yellow (Yellow); Urine Specific Gravity 1.014 (1.001-1.035); Urine Urobilinogen < 2.0 EU/DL (0.2-1.0); WBC,Urine 10 /HPF (0-6)
[2020-11-24] MEDS: DOBUTamine 500 MG/250 ML PREMIX IV SCH (14:02)
[2020-11-24] MEDS: PANTOPRAZOLE 40 MG TABLET PO SCH (17:00)
[2020-11-24] MEDS: cefTRIAXone 1,000 MG in SYRINGE 1 EACH IV SCH (20:53)
[2020-11-25 05:53] LABS: Basophils % 0.2 % (0.0-0.8); Eosinophils % 0.4 % (0.00-10.9); Hematocrit 36.6 VOL% (42.0-52.0); Hemoglobin 11.5 GM/DL (14.0-18.0); Immature Granulocytes % 0.7 %; Immature Granulocytes Absolute 0.04 #; Lymphocytes # 0.3 10*3/uL (1.4-4.0); Lymphocytes % 5.1 % (21.2-54.2); Mean Corpuscular HGB Conc 31.4 GM/DL (32-36); Mean Corpuscular Volume 81.5 FL (87-102); Mean Platelet Volume 10.2 FL (9.6-12.0); Monocytes % 13.1 % (1.7-12.7); NRBC # 0.02 10*3/uL; Neutrophils % 80.5 % (38.7-73.9); Platelet Count 159 T/CUMM (130-400); Red Blood Count 4.49 MC/CUMM (3.8-5.5); Red Cell Distribution Width 20.2 % (9.3-17.3); White Blood Count 5.7 T/CUMM (4-12)
[2020-11-25 06:28] LABS: Bilirubin,Total 1.2 MG/DL (0.2-1.0); Calcium 8.8 MG/DL (8.5-10.1); Osmolality,Calculated 277.9 MOS/KG (273-304); Potassium 3.7 MMOL/L (3.5-5.1); Total Protein 6.4 G/DL (6.4-8.3)
[2020-11-25] MEDS: INSULIN REGULAR 100 UNIT/ML SUBCUT SCH ×4 (08:01→21:54)
[2020-11-25] MEDS: DOBUTamine 500 MG/250 ML PREMIX IV SCH (08:15)
[2020-11-25] MEDS: MULTIVITAMIN (CENTRUM) TABLET PO SCH (08:44)
[2020-11-25] MEDS: ASPIRIN EC 81 MG TABLET PO SCH (08:44)
[2020-11-25] MEDS: MONTELUKAST 10 MG TABLET PO SCH (08:45)
[2020-11-25] MEDS: APIXABAN 2.5 MG TABLET PO SCH ×2 (08:45→21:54)
[2020-11-25] MEDS: METOPROLOL SUCCINATE XL 25 MG TABLET PO SCH (08:45)
[2020-11-25] MEDS: SERTRALINE 25 MG TABLET PO SCH ×2 (08:45→21:54)
[2020-11-25] MEDS: sitaGLIPtin 25 MG TABLET PO SCH (08:45)
[2020-11-25] MEDS: DOCUSATE SODIUM 100 MG CAPSULE PO SCH ×2 (08:45→21:54)
[2020-11-25] MEDS: metOLazone 5 MG TABLET PO SCH (08:45)
[2020-11-25] MEDS: PANTOPRAZOLE 40 MG TABLET PO SCH (17:14)
[2020-11-25] MEDS: cefTRIAXone 1,000 MG in SYRINGE 1 EACH IV SCH (21:54)
[2020-11-26] MEDS: DOBUTamine 500 MG/250 ML PREMIX IV SCH (03:13)
[2020-11-26 05:35] LABS: Basophils % 0.4 % (0.0-0.8); Eosinophils % 0.4 % (0.00-10.9); Hematocrit 36.9 VOL% (42.0-52.0); Hemoglobin 11.8 GM/DL (14.0-18.0); Immature Granulocytes % 0.6 %; Immature Granulocytes Absolute 0.03 #; Lymphocytes # 0.4 10*3/uL (1.4-4.0); Lymphocytes % 7.2 % (21.2-54.2); Mean Corpuscular Volume 81.1 FL (87-102); Monocytes % 12.9 % (1.7-12.7); Neutrophils % 78.5 % (38.7-73.9); Platelet Count 156 T/CUMM (130-400); Red Blood Count 4.55 MC/CUMM (3.8-5.5); Red Cell Distribution Width 20.5 % (9.3-17.3)
[2020-11-26 06:00] LABS: Albumin 2.1 G/DL (3.4-5.0); Bilirubin,Total 1.5 MG/DL (0.2-1.0); Calcium 9.1 MG/DL (8.5-10.1); Osmolality,Calculated 280.7 MOS/KG (273-304); Potassium 3.3 MMOL/L (3.5-5.1); Total Protein 6.5 G/DL (6.4-8.3)
[2020-11-26] MEDS: INSULIN REGULAR 100 UNIT/ML SUBCUT SCH ×4 (08:45→21:39)
[2020-11-26] MEDS ORDERED: POTASSIUM CHLORIDE 20 MEQ TABLET PO ONE (09:35)
[2020-11-26] MEDS: ASPIRIN EC 81 MG TABLET PO SCH (09:40)
[2020-11-26] MEDS: APIXABAN 2.5 MG TABLET PO SCH ×2 (09:40→21:39)
[2020-11-26] MEDS: MULTIVITAMIN (CENTRUM) TABLET PO SCH (09:40)
[2020-11-26] MEDS: METOPROLOL SUCCINATE XL 25 MG TABLET PO SCH (09:40)
[2020-11-26] MEDS: MONTELUKAST 10 MG TABLET PO SCH (09:40)
[2020-11-26] MEDS: DOCUSATE SODIUM 100 MG CAPSULE PO SCH ×2 (09:40→21:39)
[2020-11-26] MEDS: metOLazone 5 MG TABLET PO SCH (09:40)
[2020-11-26] MEDS: sitaGLIPtin 25 MG TABLET PO SCH (09:40)
[2020-11-26] MEDS: SERTRALINE 25 MG TABLET PO SCH ×2 (09:41→21:39)
[2020-11-26] MEDS ORDERED: DOBUTamine 500 MG/250 ML PREMIX IV SCH (12:00)
[2020-11-26] MEDS: PANTOPRAZOLE 40 MG TABLET PO SCH (17:19)
[2020-11-26] MEDS: cefTRIAXone 1,000 MG in SYRINGE 1 EACH IV SCH (21:39)
[2020-11-27 05:45] LABS: Basophils % 0.4 % (0.0-0.8); Eosinophils # 0.1 10*3/uL (0.0-0.87); Eosinophils % 1.1 % (0.00-10.9); Hematocrit 36.9 VOL% (42.0-52.0); Hemoglobin 11.5 GM/DL (14.0-18.0); Immature Granulocytes % 1.1 %; Immature Granulocytes Absolute 0.06 #; Lymphocytes # 0.4 10*3/uL (1.4-4.0); Lymphocytes % 8.1 % (21.2-54.2); Mean Corpuscular HGB Conc 31.2 GM/DL (32-36); Mean Corpuscular Volume 81.8 FL (87-102); Mean Platelet Volume 10.2 FL (9.6-12.0); Monocytes % 10.6 % (1.7-12.7); Neutrophils % 78.7 % (38.7-73.9); Platelet Count 163 T/CUMM (130-400); Red Blood Count 4.51 MC/CUMM (3.8-5.5); Red Cell Distribution Width 20.9 % (9.3-17.3); White Blood Count 5.3 T/CUMM (4-12)
[2020-11-27 06:20] LABS: Bilirubin,Total 1.1 MG/DL (0.2-1.0); Calcium 9.1 MG/DL (8.5-10.1); Osmolality,Calculated 277.7 MOS/KG (273-304); Potassium 3.7 MMOL/L (3.5-5.1); Total Protein 6.6 G/DL (6.4-8.3)
[2020-11-27] MEDS: INSULIN REGULAR 100 UNIT/ML SUBCUT SCH (08:07)
[2020-11-27] MEDS: ASPIRIN EC 81 MG TABLET PO SCH (08:36)
[2020-11-27] MEDS: sitaGLIPtin 25 MG TABLET PO SCH (08:36)
[2020-11-27] MEDS: SERTRALINE 25 MG TABLET PO SCH (08:36)
[2020-11-27] MEDS: DOCUSATE SODIUM 100 MG CAPSULE PO SCH (08:36)
[2020-11-27] MEDS: metOLazone 5 MG TABLET PO SCH (08:36)
[2020-11-27] MEDS: MONTELUKAST 10 MG TABLET PO SCH (08:36)
[2020-11-27] MEDS: MULTIVITAMIN (CENTRUM) TABLET PO SCH (08:36)
[2020-11-27] MEDS: METOPROLOL SUCCINATE XL 25 MG TABLET PO SCH (08:36)
[2020-11-27] MEDS: APIXABAN 2.5 MG TABLET PO SCH (08:37)
[2020-11-27 09:04] VITALS: BP 114/69
== END 2020-11-27 12:05 | DRG 291 ==
LOC: EDBD → EDUNIT# → N.EDINP 08:49 → N.ED 08:49 → N.EDINP 12:51 → N.5E 13:23 → N.TELEN 11-22 13:23
PROVIDERS: ADMIT Family Medicine; ATTEND Family Medicine

== ENCOUNTER 2020-12-06 16:37 | Inpatient (IN) ==
[2020-12-06 17:37] LABS: Basophils % 0.7 % (0.0-0.8); Eosinophils % 0.7 % (0.00-10.9); Hematocrit 40.3 VOL% (42.0-52.0); Hemoglobin 12.2 GM/DL (14.0-18.0); Immature Granulocytes % 0.4 %; Immature Granulocytes Absolute 0.02 #; Lymphocytes # 0.5 10*3/uL (1.4-4.0); Lymphocytes % 11.4 % (21.2-54.2); Mean Corpuscular HGB Conc 30.3 GM/DL (32-36); Mean Corpuscular Volume 83.8 FL (87-102); Mean Platelet Volume 10.4 FL (9.6-12.0); Monocytes % 9.9 % (1.7-12.7); Neutrophils % 76.9 % (38.7-73.9); Platelet Count 202 T/CUMM (130-400); Red Blood Count 4.81 MC/CUMM (3.8-5.5); Red Cell Distribution Width 22.2 % (9.3-17.3); White Blood Count 4.5 T/CUMM (4-12)
[2020-12-06 17:48] LABS: INR 1.3; PT Patient Result 13.4 SECS (9.8-11.9)
[2020-12-06 18:19] LABS: Albumin 2.4 G/DL (3.4-5.0); Bilirubin,Total 0.8 MG/DL (0.2-1.0); Calcium 8.7 MG/DL (8.5-10.1); Osmolality,Calculated 291.5 MOS/KG (273-304); Potassium 4.1 MMOL/L (3.5-5.1); Total Protein 7.2 G/DL (6.4-8.3)
[2020-12-06] MEDS ORDERED: FUROSEMIDE 40 MG/4 ML VIAL IV STA (18:29)
[2020-12-06] MEDS ORDERED: SODIUM CHLORIDE 0.9% 1,000 ML IV STA (18:29)
[2020-12-06] MEDS: FUROSEMIDE 40 MG/4 ML VIAL IV SCH (20:20)
[2020-12-06] MEDS: ACETAMINOPHEN 325 MG TABLET PO PRN (22:35)
[2020-12-07 04:11] LABS: Albumin 2.3 G/DL (3.4-5.0); Bilirubin,Total 1.2 MG/DL (0.2-1.0); Calcium 8.7 MG/DL (8.5-10.1); Osmolality,Calculated 293.2 MOS/KG (273-304); Potassium 4.2 MMOL/L (3.5-5.1); Total Protein 6.9 G/DL (6.4-8.3)
[2020-12-07 04:28] LABS: Basophils % 0.7 % (0.0-0.8); Eosinophils % 0.5 % (0.00-10.9); Hematocrit 42.3 VOL% (42.0-52.0); Immature Granulocytes % 0.7 %; Immature Granulocytes Absolute 0.03 #; Lymphocytes # 0.7 10*3/uL (1.4-4.0); Lymphocytes % 15.8 % (21.2-54.2); Mean Corpuscular HGB Conc 29.3 GM/DL (32-36); Mean Corpuscular Volume 86.5 FL (87-102); Mean Platelet Volume 11.7 FL (9.6-12.0); Monocytes % 10.3 % (1.7-12.7); NRBC # 0.02 10*3/uL; Platelet Count 199 T/CUMM (130-400); Red Blood Count 4.89 MC/CUMM (3.8-5.5); Red Cell Distribution Width 22.5 % (9.3-17.3); White Blood Count 4.4 T/CUMM (4-12)
[2020-12-07 04:39] LABS: Hemoglobin 12.4 GM/DL (14.0-18.0)
[2020-12-07 04:49] LABS: Hypochromasia 1+; Polychromasia Slight
[2020-12-07 04:50] LABS: Microcytosis 1+; Ovalocytes Few; Platelet Estimate Adequate
[2020-12-07] MEDS: FUROSEMIDE 40 MG/4 ML VIAL IV SCH ×2 (08:46→21:30)
[2020-12-07] MEDS ORDERED: PANTOPRAZOLE 40 MG VIAL IV SCH (09:00)
[2020-12-07] MEDS ORDERED: ACETAMINOPHEN 325 MG TABLET PO PRN (10:00)
[2020-12-07] MEDS ORDERED: metOLazone 5 MG TABLET PO PRN (10:00)
[2020-12-07] MEDS: cefTRIAXone 1,000 MG in SYRINGE 1 EACH IV SCH (10:16)
[2020-12-07] MEDS: INSULIN REGULAR 100 UNIT/ML SUBCUT SCH ×3 (11:07→21:30)
[2020-12-07] MEDS ORDERED: SKIN HEALING OINT (AQUAPHOR) 50 GM TUBE TOP PRN (13:04)
[2020-12-07] MEDS: BISACODYL 10 MG SUPP RECTAL PRN (15:52)
[2020-12-07] MEDS ORDERED: GLUCAGON 1 MG VIAL IM PRN (16:17)
[2020-12-07] MEDS ORDERED: DEXTROSE 50% 25 GM/50 ML VIAL IV PRN (16:17)
[2020-12-07] MEDS: MORPHINE 4 MG/1 ML VIAL IV PRN ×2 (20:20→23:52)
[2020-12-07] MEDS: APIXABAN 2.5 MG TABLET PO SCH (21:30)
[2020-12-07] MEDS: SERTRALINE 25 MG TABLET PO SCH (21:31)
[2020-12-08 04:44] LABS: Osmolality,Calculated 292.4 MOS/KG (273-304)
[2020-12-08] MEDS: MORPHINE 4 MG/1 ML VIAL IV PRN ×2 (04:56→21:11)
[2020-12-08 05:11] LABS: Eosinophils % 0.2 % (0.00-10.9); Hematocrit 41.9 VOL% (42.0-52.0); Hemoglobin 12.5 GM/DL (14.0-18.0); Immature Granulocytes % 0.5 %; Immature Granulocytes Absolute 0.02 #; Lymphocytes # 0.5 10*3/uL (1.4-4.0); Lymphocytes % 12.1 % (21.2-54.2); Mean Corpuscular HGB Conc 29.8 GM/DL (32-36); Mean Platelet Volume 10.3 FL (9.6-12.0); Monocytes % 10.9 % (1.7-12.7); NRBC # 0.03 10*3/uL; Neutrophils % 75.3 % (38.7-73.9); Platelet Count 182 T/CUMM (130-400); Red Blood Count 4.87 MC/CUMM (3.8-5.5); Red Cell Distribution Width 22.6 % (9.3-17.3); White Blood Count 4.1 T/CUMM (4-12)
[2020-12-08 05:36] LABS: Hypochromasia 1+
[2020-12-08 05:37] LABS: Acanthocytes Few; Anisocytosis 1+; Microcytosis 1+; Ovalocytes Few
[2020-12-08 05:38] LABS: Platelet Estimate Adequate; Polychromasia Slight
[2020-12-08] MEDS: INSULIN REGULAR 100 UNIT/ML SUBCUT SCH ×4 (07:05→21:11)
[2020-12-08] MEDS: BISACODYL 5 MG TABLET PO SCH (08:24)
[2020-12-08] MEDS: APIXABAN 2.5 MG TABLET PO SCH ×2 (08:24→21:10)
[2020-12-08] MEDS: ASPIRIN EC 81 MG TABLET PO SCH (08:24)
[2020-12-08] MEDS: TAMSULOSIN 0.4 MG CAPSULE PO SCH (08:26)
[2020-12-08] MEDS: SERTRALINE 25 MG TABLET PO SCH ×2 (08:27→21:11)
[2020-12-08] MEDS: METOPROLOL SUCCINATE XL 25 MG TABLET PO SCH (08:27)
[2020-12-08] MEDS: PYRIDOXINE 50 MG TABLET PO SCH (08:27)
[2020-12-08] MEDS: FUROSEMIDE 40 MG/4 ML VIAL IV SCH ×2 (08:27→21:11)
[2020-12-08] MEDS: PANTOPRAZOLE 40 MG TABLET PO SCH (08:27)
[2020-12-08] MEDS ORDERED: METOPROLOL SUCCINATE XL 25 MG TABLET PO SCH (09:00)
[2020-12-08] MEDS: DOBUTamine 500 MG/250 ML PREMIX IV SCH (09:30)
[2020-12-08] MEDS: cefTRIAXone 1,000 MG in SYRINGE 1 EACH IV SCH (09:57)
[2020-12-08] MEDS ORDERED: SODIUM PHOSPHATE ENEMA 133 ML BOTTLE RECTAL ONE (15:32)
[2020-12-08] MEDS: ONDANSETRON 4 MG/2 ML VIAL IV PRN (21:12)
[2020-12-09] MEDS ORDERED: LIDOCAINE 2% TOP JELLY 20 ML VIAL INTRAURETH ONE ×2 (01:07→01:24)
[2020-12-09 05:40] LABS: Basophils % 0.5 % (0.0-0.8); Hematocrit 37.7 VOL% (42.0-52.0); Hemoglobin 11.5 GM/DL (14.0-18.0); Immature Granulocytes % 0.3 %; Immature Granulocytes Absolute 0.01 #; Lymphocytes # 0.4 10*3/uL (1.4-4.0); Lymphocytes % 9.5 % (21.2-54.2); Mean Corpuscular HGB Conc 30.5 GM/DL (32-36); Mean Corpuscular Volume 82.9 FL (87-102); Monocytes % 14.2 % (1.7-12.7); Neutrophils % 75.5 % (38.7-73.9); Platelet Count 186 T/CUMM (130-400); Red Blood Count 4.55 MC/CUMM (3.8-5.5); Red Cell Distribution Width 22.3 % (9.3-17.3); White Blood Count 3.9 T/CUMM (4-12)
[2020-12-09 05:51] LABS: Bilirubin,Urine Negative (Negative); Blood, Urine Moderate mg/dL (Negative); Glucose,Urine (UA) Negative (Negative); Hyaline Casts,Urine 22 /LPF (0-3); Ketones,Urine Negative (Negative); Mucus,Urine Occasional /LPF (Occasional); Nitrite,Urine Negative (Negative); Protein,Urine Negative; RBC,Urine 10 /HPF (0-4); Squamous Epithelial Cell,Urine Occasional /HPF (0-10); Urine Appearance Slightly Hazy (Clear); Urine Color Yellow (Yellow); Urine Specific Gravity 1.012 (1.001-1.035); Urine Urobilinogen < 2.0 EU/DL (0.2-1.0); WBC,Urine 6 /HPF (0-6)
[2020-12-09 06:01] LABS: Acanthocytes Few; Anisocytosis 1+; Hypochromasia 1+; Microcytosis 1+
[2020-12-09 06:02] LABS: Ovalocytes Few; Platelet Estimate Adequate
[2020-12-09 06:08] LABS: Calcium 8.8 MG/DL (8.5-10.1); Osmolality,Calculated 301.7 MOS/KG (273-304); Potassium 4.2 MMOL/L (3.5-5.1)
[2020-12-09] MEDS: INSULIN REGULAR 100 UNIT/ML SUBCUT SCH ×4 (08:30→22:19)
[2020-12-09] MEDS: ACETAMINOPHEN 325 MG TABLET PO PRN ×2 (08:47→22:18)
[2020-12-09] MEDS: SERTRALINE 25 MG TABLET PO SCH ×2 (09:48→22:17)
[2020-12-09] MEDS: PYRIDOXINE 50 MG TABLET PO SCH (09:49)
[2020-12-09] MEDS: METOPROLOL SUCCINATE XL 25 MG TABLET PO SCH (09:49)
[2020-12-09] MEDS: TAMSULOSIN 0.4 MG CAPSULE PO SCH (09:49)
[2020-12-09] MEDS: PANTOPRAZOLE 40 MG TABLET PO SCH (09:50)
[2020-12-09] MEDS: ASPIRIN EC 81 MG TABLET PO SCH (09:50)
[2020-12-09] MEDS: APIXABAN 2.5 MG TABLET PO SCH ×2 (09:50→22:17)
[2020-12-09] MEDS: BISACODYL 5 MG TABLET PO SCH (09:50)
[2020-12-09] MEDS: cefTRIAXone 1,000 MG in SYRINGE 1 EACH IV SCH (09:52)
[2020-12-09] MEDS: DOBUTamine 500 MG/250 ML PREMIX IV SCH ×2 (10:21→18:33)
[2020-12-09] MEDS: MORPHINE 4 MG/1 ML VIAL IV PRN (10:25)
[2020-12-10 05:12] LABS: Basophils % 0.2 % (0.0-0.8); Eosinophils % 0.4 % (0.00-10.9); Hematocrit 35.9 VOL% (42.0-52.0); Immature Granulocytes % 0.8 %; Immature Granulocytes Absolute 0.04 #; Lymphocytes # 0.5 10*3/uL (1.4-4.0); Lymphocytes % 10.8 % (21.2-54.2); Mean Corpuscular HGB Conc 30.6 GM/DL (32-36); Mean Corpuscular Volume 83.9 FL (87-102); Mean Platelet Volume 10.6 FL (9.6-12.0); Monocytes % 13.7 % (1.7-12.7); NRBC # 0.02 10*3/uL; Neutrophils % 74.1 % (38.7-73.9); Platelet Count 185 T/CUMM (130-400); Red Blood Count 4.28 MC/CUMM (3.8-5.5); Red Cell Distribution Width 21.9 % (9.3-17.3); White Blood Count 4.7 T/CUMM (4-12)
[2020-12-10 05:35] LABS: Osmolality,Calculated 293.4 MOS/KG (273-304); Potassium 3.9 MMOL/L (3.5-5.1)
[2020-12-10] MEDS: INSULIN REGULAR 100 UNIT/ML SUBCUT SCH ×4 (09:53→20:59)
[2020-12-10] MEDS: SERTRALINE 25 MG TABLET PO SCH ×2 (10:28→20:58)
[2020-12-10] MEDS: TAMSULOSIN 0.4 MG CAPSULE PO SCH (10:28)
[2020-12-10] MEDS: BISACODYL 5 MG TABLET PO SCH (10:28)
[2020-12-10] MEDS: METOPROLOL SUCCINATE XL 25 MG TABLET PO SCH (10:29)
[2020-12-10] MEDS: PYRIDOXINE 50 MG TABLET PO SCH (10:29)
[2020-12-10] MEDS: APIXABAN 2.5 MG TABLET PO SCH ×2 (10:29→20:58)
[2020-12-10] MEDS: cefTRIAXone 1,000 MG in SYRINGE 1 EACH IV SCH (10:30)
[2020-12-10] MEDS: ASPIRIN EC 81 MG TABLET PO SCH (10:30)
[2020-12-10] MEDS: PANTOPRAZOLE 40 MG TABLET PO SCH (10:30)
[2020-12-10] MEDS: DOBUTamine 500 MG/250 ML PREMIX IV SCH (11:06)
[2020-12-10] MEDS ORDERED: TAMSULOSIN 0.4 MG CAPSULE PO SCH (21:00)
[2020-12-11 05:56] LABS: Basophils % 0.4 % (0.0-0.8); Eosinophils % 0.4 % (0.00-10.9); Hematocrit 35.1 VOL% (42.0-52.0); Hemoglobin 11.1 GM/DL (14.0-18.0); Immature Granulocytes % 0.4 %; Immature Granulocytes Absolute 0.02 #; Lymphocytes # 0.6 10*3/uL (1.4-4.0); Lymphocytes % 11.9 % (21.2-54.2); Mean Corpuscular HGB Conc 31.6 GM/DL (32-36); Mean Corpuscular Volume 80.7 FL (87-102); Mean Platelet Volume 10.6 FL (9.6-12.0); Monocytes % 15.6 % (1.7-12.7); Neutrophils % 71.3 % (38.7-73.9); Platelet Count 181 T/CUMM (130-400); Red Blood Count 4.35 MC/CUMM (3.8-5.5); Red Cell Distribution Width 21.8 % (9.3-17.3); White Blood Count 4.8 T/CUMM (4-12)
[2020-12-11 06:13] LABS: Calcium 8.7 MG/DL (8.5-10.1); Osmolality,Calculated 292.2 MOS/KG (273-304); Potassium 3.7 MMOL/L (3.5-5.1)
[2020-12-11 07:21] LABS: Hypochromasia 1+; Lymphocytes 13 % (20-55); Nucleated Red Blood Cells 3 (0-5); Segmented Neutrophils 76 % (50-85); Total Cells Counted 100
[2020-12-11 07:22] LABS: Acanthocytes Few; Microcytosis 1+; Ovalocytes Few
[2020-12-11] MEDS: INSULIN REGULAR 100 UNIT/ML SUBCUT SCH ×4 (09:11→23:06)
[2020-12-11] MEDS: PYRIDOXINE 50 MG TABLET PO SCH (09:23)
[2020-12-11] MEDS: METOPROLOL SUCCINATE XL 25 MG TABLET PO SCH (09:23)
[2020-12-11] MEDS: PANTOPRAZOLE 40 MG TABLET PO SCH (09:23)
[2020-12-11] MEDS: ASPIRIN EC 81 MG TABLET PO SCH (09:23)
[2020-12-11] MEDS: BISACODYL 5 MG TABLET PO SCH (09:24)
[2020-12-11] MEDS: SERTRALINE 25 MG TABLET PO SCH ×2 (09:24→23:07)
[2020-12-11] MEDS: TAMSULOSIN 0.4 MG CAPSULE PO SCH (09:24)
[2020-12-11] MEDS: APIXABAN 2.5 MG TABLET PO SCH ×2 (09:24→23:06)
[2020-12-11] MEDS: cefTRIAXone 1,000 MG in SYRINGE 1 EACH IV SCH (09:42)
[2020-12-11] MEDS: DOBUTamine 500 MG/250 ML PREMIX IV SCH (17:58)
[2020-12-11] MEDS: MORPHINE 4 MG/1 ML VIAL IV PRN (23:13)
[2020-12-12 05:57] LABS: Basophils % 0.4 % (0.0-0.8); Eosinophils % 0.2 % (0.00-10.9); Hemoglobin 11.3 GM/DL (14.0-18.0); Immature Granulocytes % 0.5 %; Immature Granulocytes Absolute 0.03 #; Lymphocytes # 0.5 10*3/uL (1.4-4.0); Lymphocytes % 9.8 % (21.2-54.2); Mean Corpuscular HGB Conc 30.5 GM/DL (32-36); Mean Corpuscular Volume 82.6 FL (87-102); Mean Platelet Volume 10.4 FL (9.6-12.0); Monocytes % 12.2 % (1.7-12.7); NRBC # 0.03 10*3/uL; Neutrophils % 76.9 % (38.7-73.9); Platelet Count 181 T/CUMM (130-400); Red Blood Count 4.48 MC/CUMM (3.8-5.5); White Blood Count 5.5 T/CUMM (4-12)
[2020-12-12 06:27] LABS: Calcium 8.9 MG/DL (8.5-10.1); Osmolality,Calculated 292.2 MOS/KG (273-304); Potassium 3.6 MMOL/L (3.5-5.1)
[2020-12-12] MEDS: INSULIN REGULAR 100 UNIT/ML SUBCUT SCH ×4 (07:45→21:58)
[2020-12-12] MEDS: PYRIDOXINE 50 MG TABLET PO SCH (09:09)
[2020-12-12] MEDS: TAMSULOSIN 0.4 MG CAPSULE PO SCH (09:09)
[2020-12-12] MEDS: ASPIRIN EC 81 MG TABLET PO SCH (09:09)
[2020-12-12] MEDS: BISACODYL 5 MG TABLET PO SCH (09:10)
[2020-12-12] MEDS: PANTOPRAZOLE 40 MG TABLET PO SCH (09:10)
[2020-12-12] MEDS: METOPROLOL SUCCINATE XL 25 MG TABLET PO SCH (09:10)
[2020-12-12] MEDS: SERTRALINE 25 MG TABLET PO SCH ×2 (09:10→21:59)
[2020-12-12] MEDS: APIXABAN 2.5 MG TABLET PO SCH ×2 (09:10→21:56)
[2020-12-12] MEDS: cefTRIAXone 1,000 MG in SYRINGE 1 EACH IV SCH (10:15)
[2020-12-12] MEDS: MORPHINE 4 MG/1 ML VIAL IV PRN (14:54)
[2020-12-13] MEDS: MORPHINE 4 MG/1 ML VIAL IV PRN (03:25)
[2020-12-13 05:35] LABS: Basophils % 0.4 % (0.0-0.8); Eosinophils % 0.6 % (0.00-10.9); Hemoglobin 11.5 GM/DL (14.0-18.0); Immature Granulocytes % 0.6 %; Immature Granulocytes Absolute 0.03 #; Lymphocytes # 0.5 10*3/uL (1.4-4.0); Lymphocytes % 9.7 % (21.2-54.2); Mean Corpuscular HGB Conc 31.9 GM/DL (32-36); Mean Corpuscular Volume 81.3 FL (87-102); Mean Platelet Volume 10.4 FL (9.6-12.0); Monocytes % 12.5 % (1.7-12.7); NRBC # 0.04 10*3/uL; Neutrophils % 76.2 % (38.7-73.9); Platelet Count 187 T/CUMM (130-400); Red Blood Count 4.43 MC/CUMM (3.8-5.5); Red Cell Distribution Width 22.1 % (9.3-17.3); White Blood Count 5.1 T/CUMM (4-12)
[2020-12-13 06:07] LABS: Calcium 8.9 MG/DL (8.5-10.1); Osmolality,Calculated 287.5 MOS/KG (273-304); Potassium 3.7 MMOL/L (3.5-5.1)
[2020-12-13] MEDS: INSULIN REGULAR 100 UNIT/ML SUBCUT SCH ×4 (08:02→22:39)
[2020-12-13] MEDS: ASPIRIN EC 81 MG TABLET PO SCH (09:45)
[2020-12-13] MEDS: TAMSULOSIN 0.4 MG CAPSULE PO SCH (09:45)
[2020-12-13] MEDS: BISACODYL 5 MG TABLET PO SCH (09:45)
[2020-12-13] MEDS: cefTRIAXone 1,000 MG in SYRINGE 1 EACH IV SCH (09:45)
[2020-12-13] MEDS: SERTRALINE 25 MG TABLET PO SCH ×2 (09:46→21:59)
[2020-12-13] MEDS: METOPROLOL SUCCINATE XL 25 MG TABLET PO SCH (09:46)
[2020-12-13] MEDS: APIXABAN 2.5 MG TABLET PO SCH ×2 (09:46→21:59)
[2020-12-13] MEDS: PYRIDOXINE 50 MG TABLET PO SCH (09:46)
[2020-12-13] MEDS: PANTOPRAZOLE 40 MG TABLET PO SCH (09:47)
[2020-12-13] MEDS: QUEtiapine 25 MG TABLET PO SCH ×2 (14:22→21:59)
[2020-12-13] MEDS ORDERED: ALBUMIN 25% 25 GM in PREMIX 1 EACH IV SCH (17:30)
[2020-12-13] MEDS: ALBUMIN 25% 25 GM in PREMIX 1 EACH IV SCH (22:39)
[2020-12-14 05:53] LABS: Basophils % 0.5 % (0.0-0.8); Eosinophils % 0.5 % (0.00-10.9); Hematocrit 34.6 VOL% (42.0-52.0); Hemoglobin 10.8 GM/DL (14.0-18.0); Immature Granulocytes % 0.5 %; Immature Granulocytes Absolute 0.02 #; Lymphocytes # 0.4 10*3/uL (1.4-4.0); Lymphocytes % 8.6 % (21.2-54.2); Mean Corpuscular HGB Conc 31.2 GM/DL (32-36); Mean Corpuscular Volume 80.7 FL (87-102); Mean Platelet Volume 10.9 FL (9.6-12.0); Monocytes % 13.2 % (1.7-12.7); NRBC # 0.03 10*3/uL; Neutrophils % 76.7 % (38.7-73.9); Platelet Count 181 T/CUMM (130-400); Red Blood Count 4.29 MC/CUMM (3.8-5.5); Red Cell Distribution Width 22.2 % (9.3-17.3); White Blood Count 4.4 T/CUMM (4-12)
[2020-12-14 06:13] LABS: Calcium 8.6 MG/DL (8.5-10.1); Osmolality,Calculated 293.4 MOS/KG (273-304); Potassium 3.9 MMOL/L (3.5-5.1)
[2020-12-14] MEDS: ALBUMIN 25% 25 GM in PREMIX 1 EACH IV SCH ×3 (06:14→20:58)
[2020-12-14 06:19] LABS: Albumin 2.6 G/DL (3.4-5.0); Bilirubin,Direct 0.52 MG/DL (0.0-0.20); Bilirubin,Indirect 0.8 MG/DL (0.0-1.0); Bilirubin,Total 1.3 MG/DL (0.2-1.0); Total Protein 6.8 G/DL (6.4-8.3)
[2020-12-14 06:22] LABS: Hypochromasia 1+; Microcytosis 1+; Ovalocytes Few
[2020-12-14 06:23] LABS: Acanthocytes Few; Platelet Estimate Adequate; Polychromasia Slight; Target Cells Slight
[2020-12-14] MEDS: INSULIN REGULAR 100 UNIT/ML SUBCUT SCH ×4 (08:17→21:02)
[2020-12-14] MEDS: METOPROLOL SUCCINATE XL 25 MG TABLET PO SCH (09:01)
[2020-12-14] MEDS: ASPIRIN EC 81 MG TABLET PO SCH (09:02)
[2020-12-14] MEDS: QUEtiapine 25 MG TABLET PO SCH ×2 (09:02→21:02)
[2020-12-14] MEDS: SERTRALINE 25 MG TABLET PO SCH ×2 (09:02→21:02)
[2020-12-14] MEDS: TAMSULOSIN 0.4 MG CAPSULE PO SCH (09:02)
[2020-12-14] MEDS: PYRIDOXINE 50 MG TABLET PO SCH (09:02)
[2020-12-14] MEDS: PANTOPRAZOLE 40 MG TABLET PO SCH (09:02)
[2020-12-14] MEDS: APIXABAN 2.5 MG TABLET PO SCH ×2 (09:02→21:02)
[2020-12-14] MEDS: BISACODYL 5 MG TABLET PO SCH (09:02)
[2020-12-14] MEDS: cefTRIAXone 1,000 MG in SYRINGE 1 EACH IV SCH (10:31)
[2020-12-14] MEDS: FUROSEMIDE 40 MG TABLET PO SCH ×2 (10:39→16:01)
[2020-12-14] MEDS: ONDANSETRON 4 MG/2 ML VIAL IV PRN (10:59)
[2020-12-14] MEDS: MORPHINE 4 MG/1 ML VIAL IV PRN (11:00)
[2020-12-14] MEDS: DOBUTamine 500 MG/250 ML PREMIX IV SCH ×2 (15:49→15:50)
[2020-12-14 18:50] LABS: Bacteria,Urine Occasional /HPF (Few); Bilirubin,Urine Negative (Negative); Blood, Urine Large mg/dL (Negative); Glucose,Urine (UA) Negative (Negative); Hyaline Casts,Urine 50 /LPF (0-3); Ketones,Urine Negative (Negative); Mucus,Urine Occasional /LPF (Occasional); Nitrite,Urine Negative (Negative); Protein,Urine 100 MG/DL; RBC,Urine 827 /HPF (0-4); Squamous Epithelial Cell,Urine Occasional /HPF (0-10); Urine Appearance CLOUDY (Clear); Urine Color Amber (Yellow); Urine Specific Gravity 1.016 (1.001-1.035); WBC,Urine 104 /HPF (0-6)
[2020-12-15] MEDS: MORPHINE 4 MG/1 ML VIAL IV PRN (00:15)
[2020-12-15 04:37] LABS: Basophils % 0.3 % (0.0-0.8); Eosinophils % 0.3 % (0.00-10.9); Hemoglobin 10.6 GM/DL (14.0-18.0); Immature Granulocytes % 0.5 %; Immature Granulocytes Absolute 0.03 #; Lymphocytes # 0.5 10*3/uL (1.4-4.0); Lymphocytes % 9.3 % (21.2-54.2); Mean Corpuscular HGB Conc 30.3 GM/DL (32-36); Mean Corpuscular Volume 82.2 FL (87-102); Mean Platelet Volume 10.7 FL (9.6-12.0); Monocytes % 12.2 % (1.7-12.7); NRBC # 0.03 10*3/uL; Neutrophils % 77.4 % (38.7-73.9); Platelet Count 188 T/CUMM (130-400); Red Blood Count 4.26 MC/CUMM (3.8-5.5); White Blood Count 5.7 T/CUMM (4-12)
[2020-12-15 04:53] LABS: Osmolality,Calculated 292.4 MOS/KG (273-304); Potassium 4.2 MMOL/L (3.5-5.1)
[2020-12-15] MEDS: ALBUMIN 25% 25 GM in PREMIX 1 EACH IV SCH (05:15)
[2020-12-15] MEDS: INSULIN REGULAR 100 UNIT/ML SUBCUT SCH ×4 (07:36→21:33)
[2020-12-15] MEDS: ASPIRIN EC 81 MG TABLET PO SCH (08:58)
[2020-12-15] MEDS: METOPROLOL SUCCINATE XL 25 MG TABLET PO SCH (08:58)
[2020-12-15] MEDS: PYRIDOXINE 50 MG TABLET PO SCH (08:58)
[2020-12-15] MEDS: PANTOPRAZOLE 40 MG TABLET PO SCH (08:58)
[2020-12-15] MEDS: APIXABAN 2.5 MG TABLET PO SCH ×2 (09:00→21:33)
[2020-12-15] MEDS: TAMSULOSIN 0.4 MG CAPSULE PO SCH (09:00)
[2020-12-15] MEDS: BISACODYL 5 MG TABLET PO SCH (09:00)
[2020-12-15] MEDS: SERTRALINE 25 MG TABLET PO SCH ×2 (09:00→21:33)
[2020-12-15] MEDS: FUROSEMIDE 40 MG TABLET PO SCH ×2 (09:00→16:13)
[2020-12-15] MEDS: QUEtiapine 25 MG TABLET PO SCH ×2 (09:00→21:33)
[2020-12-15] MEDS: FLUCONAZOLE 200 MG TABLET PO SCH (13:25)
[2020-12-16 05:58] LABS: Basophils % 0.3 % (0.0-0.8); Eosinophils % 0.1 % (0.00-10.9); Hematocrit 34.4 VOL% (42.0-52.0); Hemoglobin 10.8 GM/DL (14.0-18.0); Immature Granulocytes % 0.3 %; Immature Granulocytes Absolute 0.02 #; Lymphocytes # 0.4 10*3/uL (1.4-4.0); Lymphocytes % 5.8 % (21.2-54.2); Mean Corpuscular HGB Conc 31.4 GM/DL (32-36); Mean Corpuscular Volume 80.8 FL (87-102); Mean Platelet Volume 10.9 FL (9.6-12.0); Monocytes % 10.6 % (1.7-12.7); NRBC # 0.02 10*3/uL; Neutrophils % 82.9 % (38.7-73.9); Platelet Count 188 T/CUMM (130-400); Red Blood Count 4.26 MC/CUMM (3.8-5.5); White Blood Count 7.3 T/CUMM (4-12)
[2020-12-16 06:33] LABS: Calcium 9.4 MG/DL (8.5-10.1); Osmolality,Calculated 293.4 MOS/KG (273-304); Potassium 4.4 MMOL/L (3.5-5.1)
[2020-12-16] MEDS: INSULIN REGULAR 100 UNIT/ML SUBCUT SCH ×4 (08:06→21:42)
[2020-12-16] MEDS: FUROSEMIDE 40 MG TABLET PO SCH (08:07)
[2020-12-16] MEDS: ASPIRIN EC 81 MG TABLET PO SCH (10:19)
[2020-12-16] MEDS: FLUCONAZOLE 200 MG TABLET PO SCH (10:20)
[2020-12-16] MEDS: PANTOPRAZOLE 40 MG TABLET PO SCH (10:20)
[2020-12-16] MEDS: QUEtiapine 25 MG TABLET PO SCH ×3 (10:20→21:42)
[2020-12-16] MEDS: SERTRALINE 25 MG TABLET PO SCH ×3 (10:20→21:42)
[2020-12-16] MEDS: PYRIDOXINE 50 MG TABLET PO SCH (10:20)
[2020-12-16] MEDS: APIXABAN 2.5 MG TABLET PO SCH ×3 (10:21→21:42)
[2020-12-16] MEDS: TAMSULOSIN 0.4 MG CAPSULE PO SCH (10:21)
[2020-12-16] MEDS: BISACODYL 5 MG TABLET PO SCH (10:21)
[2020-12-16] MEDS: METOPROLOL SUCCINATE XL 25 MG TABLET PO SCH (10:21)
[2020-12-16] MEDS: MORPHINE 4 MG/1 ML VIAL IV PRN (13:15)
[2020-12-16] MEDS: LORazepam 2 MG/1 ML VIAL IM PRN (15:38)
[2020-12-17 05:50] LABS: Basophils % 0.5 % (0.0-0.8); Eosinophils % 0.5 % (0.00-10.9); Hematocrit 35.7 VOL% (42.0-52.0); Hemoglobin 10.8 GM/DL (14.0-18.0); Immature Granulocytes % 0.5 %; Immature Granulocytes Absolute 0.03 #; Lymphocytes # 0.6 10*3/uL (1.4-4.0); Lymphocytes % 8.6 % (21.2-54.2); Mean Corpuscular HGB Conc 30.3 GM/DL (32-36); Mean Platelet Volume 10.8 FL (9.6-12.0); Monocytes % 13.2 % (1.7-12.7); NRBC # 0.02 10*3/uL; Neutrophils % 76.7 % (38.7-73.9); Platelet Count 189 T/CUMM (130-400); Red Blood Count 4.25 MC/CUMM (3.8-5.5); Red Cell Distribution Width 22.4 % (9.3-17.3); White Blood Count 6.7 T/CUMM (4-12)
[2020-12-17 06:06] LABS: Calcium 9.1 MG/DL (8.5-10.1); Osmolality,Calculated 296.1 MOS/KG (273-304); Potassium 4.8 MMOL/L (3.5-5.1)
[2020-12-17 06:34] LABS: Platelet Estimate Normal; Poikilocytosis 1+
[2020-12-17 06:35] LABS: Anisocytosis 2+; Burr Cells 1+
[2020-12-17 06:36] LABS: Misc Morphology 0F
[2020-12-17] MEDS: INSULIN REGULAR 100 UNIT/ML SUBCUT SCH ×4 (08:07→22:48)
[2020-12-17] MEDS: BISACODYL 5 MG TABLET PO SCH (11:57)
[2020-12-17] MEDS: METOPROLOL SUCCINATE XL 25 MG TABLET PO SCH (11:57)
[2020-12-17] MEDS: PANTOPRAZOLE 40 MG TABLET PO SCH (11:57)
[2020-12-17] MEDS: APIXABAN 2.5 MG TABLET PO SCH ×2 (11:57→22:48)
[2020-12-17] MEDS: SERTRALINE 25 MG TABLET PO SCH ×2 (11:57→22:48)
[2020-12-17] MEDS: FLUCONAZOLE 200 MG TABLET PO SCH (11:57)
[2020-12-17] MEDS: TAMSULOSIN 0.4 MG CAPSULE PO SCH (11:57)
[2020-12-17] MEDS: PYRIDOXINE 50 MG TABLET PO SCH (11:57)
[2020-12-17] MEDS: ASPIRIN EC 81 MG TABLET PO SCH (11:57)
[2020-12-17] MEDS: QUEtiapine 25 MG TABLET PO SCH ×2 (11:57→22:48)
[2020-12-17] MEDS: MORPHINE 4 MG/1 ML VIAL IV PRN ×2 (12:27→22:48)
[2020-12-17] MEDS ORDERED: cefTRIAXone 1,000 MG in SYRINGE 1 EACH IV SCH (16:00)
[2020-12-18 06:08] LABS: Basophils % 0.5 % (0.0-0.8); Eosinophils % 0.4 % (0.00-10.9); Hematocrit 37.7 VOL% (42.0-52.0); Hemoglobin 11.3 GM/DL (14.0-18.0); Immature Granulocytes % 0.7 %; Immature Granulocytes Absolute 0.04 #; Lymphocytes # 0.5 10*3/uL (1.4-4.0); Lymphocytes % 8.4 % (21.2-54.2); Mean Corpuscular Volume 83.4 FL (87-102); Mean Platelet Volume 10.6 FL (9.6-12.0); Monocytes % 14.3 % (1.7-12.7); Neutrophils % 75.7 % (38.7-73.9); Platelet Count 198 T/CUMM (130-400); Red Blood Count 4.52 MC/CUMM (3.8-5.5); Red Cell Distribution Width 22.5 % (9.3-17.3); White Blood Count 5.5 T/CUMM (4-12)
[2020-12-18 06:28] LABS: Albumin 2.8 G/DL (3.4-5.0); Bilirubin,Direct 0.8 MG/DL (0.0-0.20); Bilirubin,Indirect 0.8 MG/DL (0.0-1.0); Bilirubin,Total 1.6 MG/DL (0.2-1.0); Total Protein 7.1 G/DL (5.0-7.5)
[2020-12-18 06:35] LABS: Calcium 9.4 MG/DL (8.5-10.1); Osmolality,Calculated 292.4 MOS/KG (273-304); Potassium 5.2 MMOL/L (3.5-5.1)
[2020-12-18 06:39] LABS: Acanthocytes Few; Hypochromasia 2+; Ovalocytes Few
[2020-12-18 06:40] LABS: Anisocytosis 1+; Microcytosis 1+; Poikilocytosis 1+; Target Cells Slight
[2020-12-18 06:41] LABS: Platelet Estimate Adequate
[2020-12-18] MEDS: INSULIN REGULAR 100 UNIT/ML SUBCUT SCH ×4 (08:36→21:38)
[2020-12-18] MEDS: SERTRALINE 25 MG TABLET PO SCH ×3 (08:57→21:16)
[2020-12-18] MEDS: PYRIDOXINE 50 MG TABLET PO SCH ×2 (08:57→09:07)
[2020-12-18] MEDS: QUEtiapine 25 MG TABLET PO SCH ×2 (08:57→09:07)
[2020-12-18] MEDS: ASPIRIN EC 81 MG TABLET PO SCH ×2 (08:57→09:06)
[2020-12-18] MEDS: METOPROLOL SUCCINATE XL 25 MG TABLET PO SCH ×2 (08:57→09:07)
[2020-12-18] MEDS: TAMSULOSIN 0.4 MG CAPSULE PO SCH ×2 (08:58→09:06)
[2020-12-18] MEDS: PANTOPRAZOLE 40 MG TABLET PO SCH ×2 (08:58→09:06)
[2020-12-18] MEDS: APIXABAN 2.5 MG TABLET PO SCH ×3 (08:58→21:16)
[2020-12-18] MEDS: BISACODYL 5 MG TABLET PO SCH ×2 (08:58→09:06)
[2020-12-18] MEDS: FLUCONAZOLE 200 MG TABLET PO SCH ×2 (08:58→09:06)
[2020-12-18] MEDS ORDERED: TUBERCULIN SKIN TEST 0.1 ML SYRINGE INTRADERM ONE (11:02)
[2020-12-18] MEDS ORDERED: SODIUM PHOSPHATE ENEMA 133 ML BOTTLE RECTAL PRN (12:31)
[2020-12-18] MEDS: LINEZOLID INJ 600 MG in PREMIX 1 EACH IV SCH (14:52)
[2020-12-18] MEDS: BISACODYL 10 MG SUPP RECTAL PRN (14:53)
[2020-12-18] MEDS: MORPHINE 4 MG/1 ML VIAL IV PRN (15:57)
[2020-12-18] MEDS: LORazepam 2 MG/1 ML VIAL IM PRN (17:24)
[2020-12-19] MEDS: LINEZOLID INJ 600 MG in PREMIX 1 EACH IV SCH ×2 (02:33→16:14)
[2020-12-19] MEDS: INSULIN REGULAR 100 UNIT/ML SUBCUT SCH ×4 (07:39→20:25)
[2020-12-19] MEDS: APIXABAN 2.5 MG TABLET PO SCH ×2 (09:55→20:25)
[2020-12-19] MEDS: FLUCONAZOLE 200 MG TABLET PO SCH (09:55)
[2020-12-19] MEDS: BISACODYL 5 MG TABLET PO SCH (09:55)
[2020-12-19] MEDS: PANTOPRAZOLE 40 MG TABLET PO SCH (09:55)
[2020-12-19] MEDS: PYRIDOXINE 50 MG TABLET PO SCH (09:55)
[2020-12-19] MEDS: METOPROLOL SUCCINATE XL 25 MG TABLET PO SCH (09:55)
[2020-12-19] MEDS: ASPIRIN EC 81 MG TABLET PO SCH (09:55)
[2020-12-19] MEDS: TAMSULOSIN 0.4 MG CAPSULE PO SCH (09:55)
[2020-12-19] MEDS: SERTRALINE 25 MG TABLET PO SCH ×2 (09:55→20:25)
[2020-12-20] MEDS: LINEZOLID INJ 600 MG in PREMIX 1 EACH IV SCH ×2 (01:17→14:45)
[2020-12-20] MEDS: MORPHINE 4 MG/1 ML VIAL IV PRN (01:17)
[2020-12-20 05:01] LABS: Osmolality,Calculated 303.8 MOS/KG (273-304); Potassium 4.4 MMOL/L (3.5-5.1)
[2020-12-20 05:12] LABS: Basophils % 0.2 % (0.0-0.8); Eosinophils % 0.2 % (0.00-10.9); Hematocrit 37.1 VOL% (42.0-52.0); Immature Granulocytes % 0.5 %; Immature Granulocytes Absolute 0.02 #; Lymphocytes # 0.4 10*3/uL (1.4-4.0); Lymphocytes % 9.3 % (21.2-54.2); Mean Corpuscular HGB Conc 29.6 GM/DL (32-36); Mean Corpuscular Volume 84.7 FL (87-102); Mean Platelet Volume 10.8 FL (9.6-12.0); Monocytes % 14.1 % (1.7-12.7); NRBC # 0.06 10*3/uL; Neutrophils % 75.7 % (38.7-73.9); Platelet Count 171 T/CUMM (130-400); Red Blood Count 4.38 MC/CUMM (3.8-5.5); Red Cell Distribution Width 22.9 % (9.3-17.3); White Blood Count 4.4 T/CUMM (4-12)
[2020-12-20 05:15] LABS: Burr Cells Slight; Hypochromasia Slight; Microcytosis 1+; Ovalocytes Slight; Platelet Estimate Adequate
[2020-12-20] MEDS: INSULIN REGULAR 100 UNIT/ML SUBCUT SCH ×4 (09:08→20:26)
[2020-12-20] MEDS: SERTRALINE 25 MG TABLET PO SCH ×2 (09:38→20:26)
[2020-12-20] MEDS: FLUCONAZOLE 200 MG TABLET PO SCH (09:38)
[2020-12-20] MEDS: BISACODYL 5 MG TABLET PO SCH (09:38)
[2020-12-20] MEDS: PANTOPRAZOLE 40 MG TABLET PO SCH (09:38)
[2020-12-20] MEDS: APIXABAN 2.5 MG TABLET PO SCH ×2 (09:39→20:26)
[2020-12-20] MEDS: METOPROLOL SUCCINATE XL 25 MG TABLET PO SCH (09:39)
[2020-12-20] MEDS: TAMSULOSIN 0.4 MG CAPSULE PO SCH (09:39)
[2020-12-20] MEDS: PYRIDOXINE 50 MG TABLET PO SCH (09:39)
[2020-12-20] MEDS: ASPIRIN EC 81 MG TABLET PO SCH (09:39)
[2020-12-20] MEDS: LORazepam 2 MG/1 ML VIAL IM PRN (13:28)
[2020-12-21] MEDS: LINEZOLID INJ 600 MG in PREMIX 1 EACH IV SCH ×2 (03:06→15:52)
[2020-12-21] MEDS: INSULIN REGULAR 100 UNIT/ML SUBCUT SCH ×4 (07:41→23:19)
[2020-12-21] MEDS: PANTOPRAZOLE 40 MG TABLET PO SCH (09:59)
[2020-12-21] MEDS: TAMSULOSIN 0.4 MG CAPSULE PO SCH (09:59)
[2020-12-21] MEDS: PYRIDOXINE 50 MG TABLET PO SCH (09:59)
[2020-12-21] MEDS: SERTRALINE 25 MG TABLET PO SCH ×2 (09:59→23:19)
[2020-12-21] MEDS: BISACODYL 5 MG TABLET PO SCH (09:59)
[2020-12-21] MEDS: APIXABAN 2.5 MG TABLET PO SCH ×2 (09:59→23:19)
[2020-12-21] MEDS: FLUCONAZOLE 200 MG TABLET PO SCH (09:59)
[2020-12-21] MEDS: METOPROLOL SUCCINATE XL 25 MG TABLET PO SCH (09:59)
[2020-12-21] MEDS: ASPIRIN EC 81 MG TABLET PO SCH (09:59)
[2020-12-21] MEDS: LORazepam 2 MG/1 ML VIAL IM PRN ×2 (11:53→20:22)
[2020-12-22] MEDS: LINEZOLID INJ 600 MG in PREMIX 1 EACH IV SCH (02:15)
[2020-12-22] MEDS: LORazepam 2 MG/1 ML VIAL IM PRN (03:35)
[2020-12-22 05:17] LABS: Basophils % 0.2 % (0.0-0.8); Eosinophils % 0.4 % (0.00-10.9); Hematocrit 34.3 VOL% (42.0-52.0); Hemoglobin 10.6 GM/DL (14.0-18.0); Immature Granulocytes % 0.4 %; Immature Granulocytes Absolute 0.02 #; Lymphocytes # 0.4 10*3/uL (1.4-4.0); Lymphocytes % 8.5 % (21.2-54.2); Mean Corpuscular HGB Conc 30.9 GM/DL (32-36); Mean Corpuscular Volume 81.5 FL (87-102); Monocytes % 15.4 % (1.7-12.7); NRBC # 0.04 10*3/uL; Neutrophils % 75.1 % (38.7-73.9); Platelet Count 146 T/CUMM (130-400); Red Blood Count 4.21 MC/CUMM (3.8-5.5); Red Cell Distribution Width 22.5 % (9.3-17.3); White Blood Count 4.5 T/CUMM (4-12)
[2020-12-22 05:38] LABS: Acanthocytes Few; Albumin 2.6 G/DL (3.4-5.0); Bilirubin,Total 1.7 MG/DL (0.2-1.0); Calcium 8.8 MG/DL (8.5-10.1); Hypochromasia 1+; Microcytosis 1+; Osmolality,Calculated 306.1 MOS/KG (273-304); Ovalocytes Slight; Poikilocytosis 1+; Potassium 4.4 MMOL/L (3.5-5.1); Total Protein 6.7 G/DL (5.0-7.5)
[2020-12-22 05:39] LABS: Platelet Estimate Adequate; Target Cells Slight
[2020-12-22] MEDS: INSULIN REGULAR 100 UNIT/ML SUBCUT SCH ×2 (08:20→11:57)
[2020-12-22] MEDS: FLUCONAZOLE 200 MG TABLET PO SCH (10:21)
[2020-12-22] MEDS: ASPIRIN EC 81 MG TABLET PO SCH (10:21)
[2020-12-22] MEDS: APIXABAN 2.5 MG TABLET PO SCH (10:21)
[2020-12-22] MEDS: TAMSULOSIN 0.4 MG CAPSULE PO SCH (10:21)
[2020-12-22] MEDS: BISACODYL 5 MG TABLET PO SCH (10:21)
[2020-12-22] MEDS: METOPROLOL SUCCINATE XL 25 MG TABLET PO SCH (10:22)
[2020-12-22] MEDS: SERTRALINE 25 MG TABLET PO SCH (10:22)
[2020-12-22] MEDS: PANTOPRAZOLE 40 MG TABLET PO SCH (10:22)
[2020-12-22] MEDS: PYRIDOXINE 50 MG TABLET PO SCH (10:22)
[2020-12-22 12:18] VITALS: BP 105/64
== END 2020-12-22 12:40 | disposition hospice, inpatient (51) | DRG 291 ==
LOC: EDBD → EDUNIT# → N.ED 16:37 → N.EDINP 18:51 → INTOOBSV 19:17 → SUATTDRO 19:17 → N.ICU 19:22 → N.TELES 12-08 11:03
PROVIDERS: ADMIT Family Medicine; ATTEND Family Medicine